=== PATIENT | male | born 1950 | race Hispanic/Latino ===

== ENCOUNTER 2020-04-15 11:46 | Inpatient (IN) | payer MEDICARE ==
[~2020-04-15] VITALS: Ht 180.3 cm; Wt 97.1 kg
[~2020-04-15 11:46] MED LIST: ASPIRIN EC81 MG PO; FISH OIL PO; GLIMEPIRIDE PO; LEVEMIR 3M100 UNITS/ SQ; LIPITOR40 MG PO; LISINOPRIL10 MG PO; PLAVIX75 MG PO
[2020-04-15] MEDS ORDERED: SODIUM CHLORIDE 0.9% 1000ML 1,000 ML IV STA (11:54)
[2020-04-15] MEDS ORDERED: ONDANSETRON HCL INJ 2MG/ML 2ML 2 MG/ML VIAL IV STA (11:54)
[2020-04-15] MEDS ORDERED: MORPHINE SULFATE INJ 4 MG/ML INJ 1ML IV PRN (12:00)
--- NOTE | 2020-04-15 12:14 | Emergency Department Note ---
History of Present Illnes History of Present Illness Chief Complaint: Abdominal Complaints History of Present Illness This is a 69 year old male arrives to the ED with right upper quadrant abdominal pain. Patient seen in Dr. Feng's office instructed to come to the ER to rule out acute cholecystitis. Patient states she's had pain for 3 or 4 days. 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 Any updates have been documented here. Past Medical History Recent Fever: No Clinical Suspicion of Infectio: Yes New/Unexplained Change in Ment: No Social History Smoking Cessation: Former smoker Alcohol Use: Social Review of Systems Review of Systems Constitutional: Reports no symptoms EENTM: Reports no symptoms Cardiovascular: Reports no symptoms Respiratory: Reports no symptoms Gastrointestinal: Reports as per HPI, Reports abdominal pain Genitourinary: Reports no symptoms Musculoskeletal: Reports no symptoms Integumentary: Reports no symptoms Neurological: Reports no symptoms Psychological: Reports no symptoms Endocrine: Reports no symptoms Hematological/Lymphatic: Reports no symptoms Physical Exam Related Data Allergies: Coded Allergies: No Known Allergies (Unverified , 05/11/14) Triage Vital Signs Vital Signs Date Time Temp Pulse Resp B/P (MAP) Pulse Ox O2 Delivery O2 Flow Rate FiO2 04/15/20 11:54 98.8 103 24 116/74 100 Room Air Vital signs reviewed: Yes Physical Exam CONSTITUTIONAL Constitutional: Present well-developed, Present well-nourished HENT HENT: Present normocephalic, Present atraumatic, Present oropharynx clear/mo ist, Present nose normal HENT L/R: Present left ext ear normal, Present right ext ear normal EYES Eyes: Reports PERRL, Reports scleral icterus NECK Neck: Present ROM normal PULMONARY Pulmonary: Present effort normal, Present respiratory distress CARDIOVASCULAR Cardiovascular: Present regular rhythm, Present heart sounds normal, Present capillary refill normal, Present normal rate, Present tachycardia GASTROINTESTINAL Abdominal: Present soft, Present bowel sounds normal, Present distension, Present tender GENITOURINARY Genitourinary: Present exam deferred SKIN Skin: Present warm, Present dry MUSCULOSKELETAL Musculoskeletal: Present ROM normal NEUROLOGICAL Neurological: Present alert, Present oriented x 3, Present no gross motor or sensory deficits PSYCHOLOGICAL Psychological: Present mood/affect normal, Present judgement normal Procedures 12 Lead ECG Interpretation ECG Interpretation : ECG: ECG 1 Prior ECG tracings: reviewed Rhythm: sinus rhythm Ectopy: PVC's QRS axis: left ST segments normal: Yes T waves normal: Yes Clinical Impression: non-specific ECG Critical Care Time Total Critical Care Time (min): 65 Critical care time exclusive o: separately billable procedures Critcal care necessary due to: sepsis Assessment & Plan Medical Decision Making MDM 69-year-old male the ED with abdominal pain, sent from his office to the ED for further workup of acute cholecystitis. Patient's lab work reviewed, no leukocytosis noted, however, mild elevation of T bili noted. CT abdomen and pelvis shows unremarkable gallbladder pathology. Findings of abdominal ascites were noted and explained. Spoke to Dr. Ernst hoang of Gen. surgery, as well as patient's primary care physician Dr. Carmelita Feng. Patient admitted for further workup and management. Malignancy, liver cirrhosis, hep C and other various intra-abdominal pathologies are on the differential diagnosis. Patient had SIRS criteria on arrival and severe sepsis was triggered at 1341 Blood cultures drawn, broad spectrum antibiotics in the form of Zosyn given at 1234 completion of transfusion done at 1333 Repeat lactic acid improved Source of infection noted to be intraabdominal Patient admitted Assessment & Plan Final Impression: (1) Hyperbilirubinemia (2) Liver dysfunction (3) Severe sepsis (4) Ascites Depart Disposition: ADMITTED Last Vital Signs Date Time Temp Pulse Resp B/P (MAP) Pulse Ox O2 Delivery O2 Flow Rate FiO2 04/15/20 11:54 98.8 103 24 116/74 100 Room Air Home Meds Reported Medications [Fish Oil] No Conflict Check, 1000 MG PO DAILY 05/11/14 Aspirin (ASPIRIN EC) 81 Mg Tablet., 81 MG PO DAILY, #30 TAB 05/11/14 Insulin Detemir* (LEVEMIR 3ML FLEXPEN*) 100 Units/Ml Inj, 30 UNITS SQ BID 05/11/14 Clopidogrel Bisulfate* (PLAVIX) 75 Mg Tablet, 75 MG PO DAILY, #30 TAB 05/11/14 [Glimepiride] No Conflict Check, 4 MG PO DAILY 05/11/14 Lisinopril (LISINOPRIL) 10 Mg Tablet, 10 MG PO DAILY, #30 TAB 05/11/14 Atorvastatin Calcium (LIPITOR) 40 Mg Tablet, 40 MG PO DAILY 05/11/14 Medications in the ED Sodium Chloride 1,000 ml @ 0 mls/hr Q0M STAT IV ; Start 04/15/20 at 11:54; Stop 04/15/20 at 11:56; Status DC Morphine Sulfate 4 mg ONCE PRN IV SEVERE PAIN (7-10); Start 04/15/20 at 12:00; Stop 04/22/20 at 11:59 Ondansetron HCl 4 mg NOW STAT IV ; Start 04/15/20 at 11:54; Stop 04/15/20 at 12:00; Status DC GAMAL JC, Apr 15, 2020 12:15
[2020-04-15 12:23] LABS: BASOPHILS # (AUTO) 0.1 (0.0-0.1); BASOPHILS % 1.3 % (0.0-1.0); EOSINOPHILS # (AUTO) 0.2 (0.0-0.4); EOSINOPHILS % 2.8 % (0.0-6.0); HEMOGLOBIN 11.4 g/dL (14.0-18.0); LYMPHOCYTES # (AUTO) 0.6 (1.0-3.2); LYMPHOCYTES % 7.4 % (18.0-39.1); MEAN CORPUSCULAR HEMOGLOBIN 26.8 pg (28-32); MEAN CORPUSCULAR HGB CONC 30.8 g/dL (31-35); MEAN CORPUSCULAR VOLUME 87.1 fL (81-99); MONOCYTES # (AUTO) 0.6 (0.2-0.8); MONOCYTES % 8.5 % (4.4-11.3); NEUTROPHILS # (AUTO) 5.9 (2.1-6.9); NEUTROPHILS % 79.7 % (38.7-80.0); PLATELET COUNT 290 x10e3/uL (140-360); RED BLOOD COUNT 4.25 x10e6/uL (4.3-5.7); RED CELL DISTRIBUTION WIDTH 16.8 % (11.7-14.4)
[2020-04-15] MEDS ORDERED: PIPER-TAZ 3.375 GM 50 ML IV STA (12:34)
[2020-04-15 12:41] LABS: ALBUMIN/GLOBULIN RATIO 0.7 (0.8-2.0); ANION GAP 17.2 mmol/L (8-16); CALCIUM 8.9 mg/dL (8.4-10.2); CREATININE, SERUM 1.72 mg/dL (0.72-1.25); POTASSIUM 4.2 mmol/L (3.5-5.1)
[2020-04-15 12:48] LABS: CREATINE KINASE MB 1.7 ng/mL (0-5.0)
[2020-04-15 13:14] LABS: CLARITY,URINE CLEAR (CLEAR); COLOR,URINE YELLOW (YELLOW)
[2020-04-15 13:15] LABS: BILIRUBIN,URINE NEGATIVE (NEGATIVE); KETONES,URINE 1+ (NEGATIVE); LEUKOCYTE ESTERASE ,URINE NEGATIVE (NEGATIVE); NITRITE,URINE NEGATIVE (NEGATIVE); PROTEIN,URINE DIPSTICK NEGATIVE (NEGATIVE); URINE UROBILINOGEN 0.2 mg/dL (0.2 - 1)
[2020-04-15 13:29] LABS: BACTERIA,URINE FEW /HPF; EPITHELIAL CELLS,URINE RARE /LPF; RBC,URINE 0-5 /HPF (0-5); WBC,URINE (MAN) 0-5 /HPF (0-5)
[2020-04-15] MEDS ORDERED: SODIUM CHLORIDE 0.9% 50ML 50 ML ONE (14:32)
[2020-04-15] MEDS ORDERED: IOPAMIDOL 370 MG/ML 200 ML INFUS..BTL INJ ONE (14:33)
--- NOTE | 2020-04-15 14:33 | Diagnostic Imaging Report ---
CT of the abdomen and pelvis, with contrast. History: Right upper quadrant abdominal pain. Comparison: None available. Technique: Multidetector CT scanning of the abdomen and pelvis was performed from the level of the lung bases to the inferior pubic rami after intravenous administration of contrast. Coronal and sagittal multiplanar reformations were obtained. RADIATION DOSE: Total DLP: 751.24 mGy*cm Dose modulation, iterative reconstruction, and/or weight based adjustment of the mA/kV was utilized to reduce the radiation dose to as low as reasonably achievable. FINDINGS: Areas of scattered subsegmental atelectasis noted within the visualized lung bases. Atherosclerotic calcifications noted within the visualized coronary arteries. There is a moderate volume of simple-appearing abdominopelvic ascites present. The liver is normal in size and attenuation but demonstrates a subtle micronodular contour which can be seen in setting of hepatic dysfunction. No focal hepatic abnormality is identified on the single phase examination. There is reflux of contrast material into the hepatic veins which is nonspecific but can be seen in the setting of right-sided heart dysfunction. The gallbladder is not dilated. There is no evidence for radiopaque stone or wall thickening. There is no intra or extrahepatic biliary ductal dilatation. The stomach, spleen, pancreas, and bilateral adrenal glands are unremarkable. The kidneys are normal in size and location and enhance symmetrically. Vascular calcifications are noted on the left. There is no evidence for nephrolithiasis or hydronephrosis. No ureteral stone or dilatation is appreciated. The abdominal aorta is normal in course and caliber with extensive atherosclerotic calcifications. Significant atherosclerotic plaquing noted at the origins of the celiac axis, SMA, left renal artery, and SAUMYA. The IVC is unremarkable. The portal venous system, SMV, and splenic vein appear patent. Please note evaluation of bowel is limited without the use of enteric contrast material. Mild wall thickening noted of a loop of small bowel within the left upper abdomen, likely reactive to adjacent ascites. The visualized loops of small and large bowel otherwise demonstrate no evidence of obstruction or inflammation. There is no intraperitoneal free air. No abnormally enlarged lymph nodes are identified within the abdomen or pelvis. Tiny fat-containing umbilical hernia and small bilateral fat-containing hernias noted. There are degenerative changes of the lower lumbar spine. Osseous structures otherwise demonstrate no evidence for acute fracture or destructive process. Body wall edema noted. IMPRESSION: 1. Moderate volume of abdominopelvic ascites. 2. Subtle micronodular contour noted of the liver which can be seen in the setting of hepatic dysfunction. Reflux of contrast material also noted within the hepatic veins which is nonspecific but can be seen in the setting of right-sided heart dysfunction. 3. Prominent calcific abdominal aortic atherosclerosis and coronary artery disease. Signed by: Dr. Andres Whyte MD on 04/15/2020 2:30 PM
--- OUTSIDE RECORDS SUMMARY | 2020-04-15 16:22 | XMS REPORT | Continuity of Care Document ---
Author Author [facility] t Organization [facility] Address [address] [place] [address] Phone Unavailable Care Team Providers Care X Ray Nurse Name Role Phone DAYANARATARACarmelita GAMAL Attphys Unavailable Payers Payer Name Policy Type Policy Number Effective Date Expiration Date S ource Problems Condition Name Condition Details Condition Category Status Onset Date Resolution Date Last Treatment Date Treating Clinician Comments Source Carotid artery disease Palafox tid artery disease Active Problem 04/07/2016 Mohamed O Jeroudi Problem Active 20 03-04-20 02:48:23 Ramone Shirley Hypercholesterolemia Hype rcholesterolemia Active Problem 04/07/2016 Mohamed O Jeroudi Problem Active 2016-04-07 02:48:23 Ramone Shirley Diabetes mellitus Diab etes mellitus Active Problem 04/07/2016 Mohamed O Jeroudi Problem Active 2016-04-07 02:48:23 Ramone Shirley Equivalent angina Equi valent angina Active Problem 04/07/2016 Mohamed O Jeroudi Problem Active 2016-04-07 02:48:23 Ramone Shirley CAD, Graft CAD, Graft Active Problem 04/07/2016 Mohamed O Jeroudi Problem Active 2016-04-07 02:48:23 Ramone Shirley Smoker Smok er Active Diagnosis 04/07/2016 Mohamed O Jeroudi Diagnosis Active 2016-04-07 02:48:23 Me dena Shirley DJD (degenerative joint disease) of knee DJD (degenerative joint disease) of knee Active Diagnosis 04/07/2016 Mohamed O Daveoudi Diagnosis Active 2016-04-07 02:48:23 Me dena Shirley Subclavian artery stenosis, left Subclavian artery stenosis, left Active Problem 04/07/2016 Lilliana Delaney Problem Active 2016-04-07 02:48:23 [facility] CVA CVA Active Problem 04/07/2016 Lilliana Delaney Problem Active 2016-04-07 02:48:23 [facility] Atherosclerosis of saxman arteries of th e extremities with intermittent claudication Atherosclerosis of saxman arteries of the extremities with intermittent claudication Active Problem 04/07/2016 Lilliana Delaney Problem Active 2016-04-07 02:48:23 Raman Shirley Abnormal EKG Abno rmal EKG Active Problem 04/07/2016 Lilliana Delaney Problem Active 2016-04-07 02:48:23 [facility] Benign hypertensive heart disease Benign hypertensive heart disease Active Problem 04/07/2016 Lilliana Delaney Problem Active 2016-04-07 02:48:23 [facility] jail 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 use of 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 Active Diagnosis 02/23/2020 Lilliana Delaney Diagnosis Active 2020-02-23 02:45:23 [facility] Patient unable to exercise Pat ient unable to exercise Active Diagnosis 02/23/2020 Lilliana Delaney Diagnosis Active 2020-02-23 02:45:23 [facility] Subclavian arterial stenosis S ubclavian arterial stenosis Active Diagnosis 02/23/2020 Lilliana Delaney Diagnosis Active 2020-02-23 02:45:23 [facility] Type 2 diabetes mellitus with unspecified complication s Type 2 diabetes mellitus with unspecified complications Active Diagnosis 02/23/2020 Lilliana Delaney Diagnosis Active 2020-02-23 02:45:2 3 [facility] History of CEA (carotid endarterectomy) History of CEA (carotid endarterectomy) Active Diagnosis 02/23/2020 Lilliana Delaney Diagnosis Active 2020-02-23 02:45:23 Gerardo Shirley Osteoarthritis of knee, unspecified Osteoarthritis of knee, unspecified Active Diagnosis 02/23/2020 Lilliana Delaney Diagnosis Active 2020-02-23 02:45:23 [facility] Nicotine dependence, unspecified, uncomplicated Nicotine dependence, unspecified, uncomplicated Active Diagnosis 02/23/2020 Lilliana Delaney Diagnosis Active 2020-02-23 02:45:23 [facility] Pure hypercholesterolemia, unspecified Pure hypercholesterolemia, unspecified Active Diagnosis 02/23/2020 Lilliana Delaney Diagnosis Active 2020-02-23 02:45:23 [facility] Hypertensive heart disease without heart failure Hypertensive heart disease without heart failure Active Diagnosis 02/23/2020 Lilliana Delaney Diagnosis Active 2020-02-23 02:45:23 [facility] 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 Active Problem 02/23/2020 Lilliana Delaney Problem Active 2020-02-23 02:45:23 [facility] Abnormal electrocardiogram [ECG] [EKG] Abnormal electrocardiogram [ECG] [EKG] Active Diagnosis 02/23/2020 Lilliana eDlaney Diagnosis Active 2020-02-23 02:45:23 [facility] 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 Active Diagnosis 02/23/2020 Lilliana Delaney Diagnosis Active 2020-02-23 02:45:2 3 [facility] Acute mitral insufficiency Acu te mitral insufficiency Active Problem 02/23/2020 Lilliana Delaney Problem Active 2020-02-23 02:45:23 [facility] History of AR (myocardial infarction) History of AR (myocardial infarction) Active Problem 02/23/2020 Lilliana Delaney Problem Active 2020-02-23 02:45:23 [facility] Mitral valve disorders Mitr al valve disorders Active Problem 02/23/2020 Lilliana Delaney Problem Active 07-03-07 02:45:23 [facility] Atherosclerosis of saxman artery of both lower extremities with intermittent claudication Atherosclerosis of saxman artery of both lower extremities with intermittent claudication Active Diagnosis 02/23/2020 Lilliana Delaney Diagnosis Active 2020-02-23 02:45:23 [facility] AGRAWAL (dyspnea on exertion) AGRAWAL (dyspnea on exertion) Active Problem 02/23/2020 Lilliana Delaney Problem Active 2020-02-23 02:45:23 [facility] Chronic systolic congestive heart failure Chronic systolic congestive heart failure Active Problem 02/23/2020 Lilliana Delaney Problem Active 2020-02-23 02:45:23 [facility] Abnormal cardiovascular stress test Abnormal cardiovascular stress test Active Problem 02/23/2020 Mohamed O Jeroudi Problem Active 2020-02-23 02:45:23 Gerardo Shirley Other forms of angina pectoris Other forms of angina pectoris Active Problem 02/23/2020 Lilliana Blackwell Jeroudi Problem Active 2020-02-23 02:45:23 [facility] Allergies, Adverse Reactions, Alerts Allergy Name Allergy Type Status Severity Reaction(s) Onset Date Inacti ve Date Treating Clinician Comments Source No Known Allergies DA Active U 2020-02-16 00:00:00 [facility] N.KNika Kirk Active Info Not Available 2018-11-24 00:00:00 [facility] No Known Allergies DA Active U 2015-01-14 00:00:00 [facility] Family History Family Member Diagnosis Comments Start Date Stop Date Source Unknown Family Member Family History 2016-04-07 02:48:12 2 02:48:12 [facility] Social History Social Habit Start Date Stop Date Quantity Comments Source Smoking 2015-04-12 00:00:00 2015-04-12 00:00:00 [facility] Medications Ordered Medication Name Filled Medication Name Start Date Stop Da te Current Medication? Ordering Clinician Indication Dosage Frequency Signature (SIG) Comments Components Source Clopidogrel Bisulfate 2020-02-23 02:45:23 Yes Ahmad Jeroudi 1 tablet [facility] Aspirin EC 2020-02-23 02:45:23 Yes Ahmad Jeroudi 1 tablet [facility] Glimepiride 2020-02-23 02:45:23 Yes Ahmad Jeroudi 1 tablet with breakfast or the first main meal of the day [facility] Metoprolol Tartrate 2020-02-23 02:45:23 Yes Ahmad Jeroud i 1/2 half tablet [facility] Levemir 2020-02-23 02:45:23 Yes Ahmad Jeroudi as directed [facility] Atorvastatin Calcium 2020-02-23 02:45:23 Yes Ahmad Jeroudi 1 tablet [facility] Lisinopril 2020-02-23 02:45:23 Yes Ahmad Jeroudi 1 tablet [facility] Aspir-81 2020-02-23 02:45:23 Yes Ahmad Jeroudi 1 tablet [facility] Lasix 2020-01-28 00:00:00 Yes Ahmad Jeroudi 1 tab let [facility] Levemir 2016-04-07 02:48:23 Yes Lilliana Acostamamadoudi a s directed [facility] [place] Glimepiride 2016-04-07 02:48:23 Yes Lilliana Acostaoudi 1 tablet with breakfast or the first main meal of the day [facility] [place] Metoprolol Tartrate 2016-04-07 02:48:23 Yes Lilliana Elizondo estefany 1/2 half tablet [facility] Clopidogrel Bisulfate 2016-04-07 02:48:23 Yes Lilliana Sanchez roudi 1 tablet [facility] Aspirin EC 2016-04-07 02:48:23 Yes Lilliana Acostaoudi 1 tablet [facility] Atorvastatin Calcium 2016-04-07 02:48:23 Yes Lilliana Acostaoudi 1 tablet [facility] [place] Lisinopril 2016-04-07 02:48:23 Yes Lilliana Acostaoudi 1 tablet [facility] Vital Signs Vital Name Observation Time Observation Value Comments Source Weight 2020-01-28 18:00:00 [facility] [place] Height 2020-01-28 18:00:00 [facility] [place] Temperature Oral (F) 2020-01-28 18:00:00 97.0 F [facility] [place] Heart Rate 2020-01-28 18:00:00 [facility] [place] Diastolic (mm Hg) 2020-01-28 18:00:00 [facility] [place] Systolic (mm Hg) 2020-01-28 18:00:00 Raman Bowenann Weight 2019-02-09 16:00:00 [facility] [place] Height 2019-02-09 16:00:00 [facility] [place] Temperature Oral (F) 2019-02-09 16:00:00 97.0 F [facility] [place] Heart Rate 2019-02-09 16:00:00 [facility] [place] Diastolic (mm Hg) 2019-02-09 16:00:00 [facility] [place] Systolic (mm Hg) 2019-02-09 16:00:00 Raman bubbal [place] Weight 2019-01-08 18:00:00 [facility] [place] Height 2019-01-08 18:00:00 [facility] [place] Temperature Oral (F) 2019-01-08 18:00:00 96.7 F [facility] [place] Heart Rate 2019-01-08 18:00:00 [facility] [place] Diastolic (mm Hg) 2019-01-08 18:00:00 [facility] [place] Systolic (mm Hg) 2019-01-08 18:00:00 [facility] [place] Weight 2018-12-10 19:00:00 [facility] [place] Height 2018-12-10 19:00:00 [facility] [place] Temperature Oral (F) 2018-12-10 19:00:00 96.2 F [facility] [place] Heart Rate 2018-12-10 19:00:00 [facility] [place] Diastolic (mm Hg) 2018-12-10 19:00:00 [facility] [place] Systolic (mm Hg) 2018-12-10 19:00:00 Raman [facility] [place] Weight 2018-11-24 20:30:00 [facility] [place] Height 2018-11-24 20:30:00 [facility] [place] Temperature Oral (F) 2018-11-24 20:30:00 96.1 F [facility] [place] Heart Rate 2018-11-24 20:30:00 [facility] [place] Diastolic (mm Hg) 2018-11-24 20:30:00 [facility] [place] Systolic (mm Hg) 2018-11-24 20:30:00 Raman rial [place] Weight 2015-04-11 20:00:00 [facility] [place] Height 2015-04-11 20:00:00 [facility] [place] Temperature Oral (F) 2015-04-11 20:00:00 97.9 F [facility] [place] Heart Rate 2015-04-11 20:00:00 [facility] [place] Diastolic (mm Hg) 2015-04-11 20:00:00 [facility] [place] Systolic (mm Hg) 2015-04-11 20:00:00 Raman [facility] [place] Weight 2015-03-23 19:00:00 [facility] [place] Height 2015-03-23 19:00:00 [facility] [place] Temperature Oral (F) 2015-03-23 19:00:00 97.2 F [facility] [place] Heart Rate 2015-03-23 19:00:00 [facility] [place] Diastolic (mm Hg) 2015-03-23 19:00:00 [facility] [place] Systolic (mm Hg) 2015-03-23 19:00:00 Raman [facility] [place] Weight 2015-02-01 19:30:00 [facility] [place] Height 2015-02-01 19:30:00 [facility] [place] Temperature Oral (F) 2015-02-01 19:30:00 96.7 F [facility] [place] Heart Rate 2015-02-01 19:30:00 [facility] [place] Diastolic (mm Hg) 2015-02-01 19:30:00 [facility] [place] Systolic (mm Hg) 2015-02-01 19:30:00 Raman rial [place] Procedures This patient has no known procedures. Encounters Start Date/Time End Date/Time Encounter Type Admission Type [facility] Care Department Encounter ID Source 2020-01-28 13:00:00 2020-01-28 13:00:00 Outpatient Lilliana Delaney MD [place] [id number] [employer] 2019-02-09 11:00:00 2019-02-09 11:00:00 Outpatient Lilliana Delaney MD [place] [id number] [employer] 2019-01-08 13:00:00 2019-01-08 13:00:00 Outpatient Lilliana Delaney MD [place] [id number] [employer] 2018-12-10 14:00:00 2018-12-10 14:00:00 Outpatient Lilliana Delaney MD PA [id number] [employer] 2018-11-24 15:30:00 2018-11-24 15:30:00 Outpatient Lilliana Delaney MD [place] [id number] [employer] 2015-04-11 15:00:00 2015-04-11 15:00:00 [place] [id number] [employer] 2015-03-23 14:00:00 2015-03-23 14:00:00 [place] [id number] [employer] 2015-02-01 14:30:00 2015-02-01 14:30:00 [place] [id number] [employer] Results Test Description Test Time Test Comments Results Result Comments Source CT ABDOMEN/PELVIS W 2020-04-15 14:13:00 [place] [address] Patient Name: OBDULIA GARCIA MR #: [id number] : 1950 [facility] 69[id number] #: [id number] [facility] Physician: Ordered by: GAMAL JC DO Report #: [id number] Location: ER Room/Bed: Procedure: [id number] CT/CT ABDOMEN/PELVIS W Exam Date: 04/15/20 Exam Time: 1330 REPORT STATUS: Signed CT of the abdomen and pelvis, with contrast. History: Right upper quadrant abdominal pain. Comparison: None available. Technique: Multidetector CT scanning of the abdomen and pelvis was performed from the level of the lung bases to the inferior pubic rami after intravenous administration of contrast. Coronal and sagittal multiplanar reformations were obtained. RADIATION DOSE: Total DLP: 751.24 mGy*cm Dose modulation, iterative reconstruction, and/or weight based adjustment of the mA/kV was utilized to reduce the radiation dose to as low as reasonably achievable. FINDINGS: Areas of scattered subsegmental atelectasis noted within the visualized lung bases. Atherosclerotic calcifications noted within the visualized coronary arteries. There is a moderate volume of simple-appearing abdominopelvic ascites present. The liver is normal in size and attenuation but demonstrates a subtle micronodular contour which can be seen in setting of hepatic dysfunction. No focal hepatic abnormality is identified on the single phase examination. There is reflux of contrast material into the hepatic veins which is nonspecific but can be seen in the setting of right-sided heart dysfunction. The gallbladder is not dilated. There is no evidence for radiopaque stone or wall thickening. There is no intra or extrahepatic biliary ductal dilatation. The stomach, spleen, pancreas, and bilateral adrenal glands are unremarkable. The kidneys are normal in size and location and enhance symmetrically. Vascular calcifications are noted on the left. There is no evidence for nephrolithiasis or hydronephrosis. No ureteral stone or dilatation is appreciated. The abdominal aorta is normal in course and caliber with extensive atherosclerotic calcifications. Significant atherosclerotic plaquing noted at the origins of the celiac axis, SMA, left renal artery, and SAUMYA. The IVC is unremarkable. The portal venous system, SMV, and splenic vein appear patent. Please note evaluation of bowel is limited without the use of enteric contrast material. Mild wall thickening noted of a loop of small bowel within the left upper abdomen, likely reactive to adjacent ascites. The visualized loops of small and large bowel otherwise demonstrate no evidence of obstruction or inflammation. There is no intraperitoneal free air. No abnormally enlarged lymph nodes are identified within the abdomen or pelvis. Tiny fat-containing umbilical hernia and small bilateral fat-containing hernias noted. There are degenerative changes of the lower lumbar spine. Osseous structures otherwise demonstrate no evidence for acute fracture or destructive process. Body wall edema noted. IMPRESSION: 1. Moderate volume of abdominopelvic ascites. 2. Subtle micronodular contour noted of the liver which can be seen in the setting of hepatic dysfunction. Reflux of contrast material also noted within the hepatic veins which is nonspecific but can be seen in the setting of right-sided heart dysfunction. 3. Prominent calcific abdominal aortic atherosclerosis and coronary artery disease. Signed by: Dr. Andres Whyte MD on 04/15/2020 2:30 PM Dictated By: ANDRES WHYTE MD 1430 Transcribed By: YUMIKO on 04/15/20 1430 COPY TO: GAMAL JC DO BASIC METABOLIC PANEL 2020-02-22 08:17:00 Test Item SODIUM (test code = NA) 138 mmol/L 136-145 N POTASSIUM (test code = K) 3.8 mmol/L 3.5-5.1 N CHLORIDE (test code = CL) 92.0 mmol/L 98-107 L CARBON DIOXIDE (test code = CO2) 39.0 mmol/L 21-32 H ANION GAP (test code = GAP) 10.8 10-20 N GLUCOSE (test code = GLU) 63 mg/dL 74-106 L BLOOD UREA NITROGEN (test code = BUN) 29 mg/dL 7-18 H GLOMERULAR FILTRATION RATE (test code = GFR) 46 mL/min >=60 Estimated GFR by using Modified MDRD formula.Chronic kidney disease is defined as either kidney damageor GFR <60 mL/min/1.73 m2 for >3 months. CREATININE (test code = CREAT) 1.50 mg/dL 0.7-1.3 H BUN/CREATININE RATIO (test code = BUN/CREA) 19.2 10-20 N CALCIUM (test code = CA) 9.7 mg/dL 8.5-10.1 N BASIC METABOLIC [id number] 08:09:00* Test Item Value Reference Range Interpretation Comments SODIUM (test code = NA) 138 mmol/L 136-145 N POTASSIUM (test code = K) 3.8 mmol/L 3.5-5.1 N CHLORIDE (test code = CL) 92.0 mmol/L 98-107 L CARBON DIOXIDE (test code = CO2) mmol/L 21-32 ANION GAP (test code = GAP) 10.8 10-20 N GLUCOSE (test code = GLU) mg/dL 74-106 BLOOD UREA NITROGEN (test code = BUN) mg/dL 7-18 GLOMERULAR FILTRATION RATE (test code = GFR) mL/min >=60 CREATININE (test code = CREAT) mg/dL 0.7-1.3 BUN/CREATININE RATIO (test code = BUN/CREA) 10-20 CALCIUM (test code = CA) 9.7 mg/dL 8.5-10.1 N [id number] 07:58:00* Test Item Value Reference Range Interpretation Comments GLUBED (test code = GLUBED) 121 mg/dL 74-106 H Performed by certified fruit loader machine operator at [facility] [id number] 06:31:00* Test Item Value Reference Range Interpretation Comments GLUBED (test code = GLUBED) 65 mg/dL 74-106 L Performed by certified fruit loader machine operator at [facility] COMPREHENSIVE METABOLIC [id number] 05:10:00* Test Item Value Reference Range Interpretation Comments SODIUM (test code = NA) 137 mmol/L 136-145 N POTASSIUM (test code = K) 3.6 mmol/L 3.5-5.1 N CHLORIDE (test code = CL) 92.0 mmol/L 98-107 L CARBON DIOXIDE (test code = CO2) 39.0 mmol/L 21-32 H ANION GAP (test code = GAP) 9.6 10-20 L GLUCOSE (test code = GLU) 63 mg/dL 74-106 L BLOOD UREA NITROGEN (test code = BUN) 29 mg/dL 7-18 H GLOMERULAR FILTRATION RATE (test code = GFR) 46 mL/min >=60 Estimated GFR by using Modified MDRD formula.Chronic kidney disease is defined as either kidney damageor GFR <60 mL/min/1.73 m2 for >3 months. CREATININE (test code = CREAT) 1.50 mg/dL 0.7-1.3 H BUN/CREATININE RATIO (test code = BUN/CREA) 19.6 10-20 N TOTAL PROTEIN (test code = PROT) 7.2 gram/dL 6.4-8.2 N ALBUMIN (test code = ALB) 3.0 g/dL 3.4-5.0 L GLOBULIN (test code = GLOB) 4.2 gram/dL 2.7-4.2 N ALBUMIN/GLOBULIN RATIO (test code = A/G) 0.7 0.75-1.50 L CALCIUM (test code = CA) 9.6 mg/dL 8.5-10.1 N BILIRUBIN TOTAL (test code = BILT) 1.10 mg/dL 0.0-1.0 H SGOT/AST (test code = AST) 23 IUnit/L 15-37 N SGPT/ALT (test code = ALT) 26 IUnit/L 12-78 N ALKALINE PHOSPHATASE TOTAL (test code = ALKP) 73 IUnit/L 45-117 N Note change in reference range due to change in reagent. COMPREHENSIVE METABOLIC [id number] 05:01:00* Test Item Value Reference Range Interpretation Comments SODIUM (test code = NA) 137 mmol/L 136-145 N POTASSIUM (test code = K) 3.6 mmol/L 3.5-5.1 N CHLORIDE (test code = CL) 92.0 mmol/L 98-107 L CARBON DIOXIDE (test code = CO2) mmol/L 21-32 ANION GAP (test code = GAP) 10-20 GLUCOSE (test code = GLU) mg/dL 74-106 BLOOD UREA NITROGEN (test code = BUN) mg/dL 7-18 GLOMERULAR FILTRATION RATE (test code = GFR) mL/min >=60 CREATININE (test code = CREAT) mg/dL 0.7-1.3 BUN/CREATININE RATIO (test code = BUN/CREA) 10-20 TOTAL PROTEIN (test code = PROT) gram/dL 6.4-8.2 ALBUMIN (test code = ALB) g/dL 3.4-5.0 GLOBULIN (test code = GLOB) gram/dL 2.7-4.2 ALBUMIN/GLOBULIN RATIO (test code = A/G) 0.75-1.50 CALCIUM (test code = CA) mg/dL 8.5-10.1 BILIRUBIN TOTAL (test code = BILT) mg/dL 0.0-1.0 SGOT/AST (test code = AST) IUnit/L 15-37 SGPT/ALT (test code = ALT) IUnit/L 12-78 ALKALINE PHOSPHATASE TOTAL (test code = ALKP) IUnit/L 45-117 CBC W/AUTO [id number] 04:40:00* Test Item Value Reference Range Interpretation Comments WHITE BLOOD CELL (test code = WBC) 7.2 K/mm3 4.5-12.5 N RED BLOOD CELL (test code = RBC) 4.80 mill/mm3 4.0-5.8 N HEMOGLOBIN (test code = HGB) 12.8 gram/dL 13.0-17.5 L HEMATOCRIT (test code = HCT) 39.7 % 42.0-52.0 L MEAN CELL VOLUME (test code = MCV) 82.7 fL 80-98 N MEAN CELL HGB (test code = MCH) 26.7 picogram 27.0-33.0 L MEAN CELL HGB CONCETRATION (test code = MCHC) 32.2 gram/dL 33.0-36. 0 L RED CELL DISTRIBUTION WIDTH (test code = RDW) 15.7 % 11.6-16. 2 N RED CELL DISTRIBUTION WIDTH SD (test code = RDW-SD) 47.4 fL 37 .0-51.0 N PLATELET COUNT (test code = PLT) 284 K/mm3 150-450 N MEAN PLATELET VOLUME (test code = MPV) 10.7 fL 6.7-11.0 N NEUTROPHIL % (test code = NT%) 64.6 % 39.0-69.0 N IMMATURE GRANULOCYTE % (test code = IG%) 0.1 % 0.0-5.0 N LYMPHOCYTE % (test code = LY%) 14.6 % 25.0-55.0 L MONOCYTE % (test code = MO%) 11.3 % 0.0-10.0 H EOSINOPHIL % (test code = EO%) 7.9 % 0.0-5.0 H BASOPHIL % (test code = BA%) 1.5 % 0.0-1.0 H NUCLEATED RBC % (test code = NRBC%) 0.0 % 0-0 N NEUTROPHIL # (test code = NT#) 4.65 K/mm3 1.8-7.7 N IMMATURE GRANULOCYTE # (test code = IG#) 0.01 x10 3/uL 0-0.03 N LYMPHOCYTE # (test code = LY#) 1.05 K/mm3 1.0-5.0 N MONOCYTE # (test code = MO#) 0.81 K/mm3 0-0.8 H EOSINOPHIL # (test code = EO#) 0.57 K/mm3 0.0-0.5 H BASOPHIL # (test code = BA#) 0.11 K/mm3 0.0-0.2 N NUCLEATED RBC # (test code = NRBC#) 0.00 K/mm3 0.0-0.1 N [id number] 20:15:00* Test Item Value Reference Range Interpretation Comments GLUBED (test code = GLUBED) 159 mg/dL 74-106 H Performed by certified fruit loader machine operator at [facility] [id number] 17:32:00* Test Item Value Reference Range Interpretation Comments GLUBED (test code = GLUBED) 120 mg/dL 74-106 H Performed by certified fruit loader machine operator at [facility] [id number] 12:43:00* Test Item Value Reference Range Interpretation Comments GLUBED (test code = GLUBED) 171 mg/dL 74-106 H Performed by certified fruit loader machine operator at [facility] [id number] 08:29:00* Test Item Value Reference Range Interpretation Comments GLUBED (test code = GLUBED) 85 mg/dL 74-106 N Performed by certified fruit loader machine operator at [facility] COMPREHENSIVE METABOLIC [id number] 05:57:00* Test Item Value Reference Range Interpretation Comments SODIUM (test code = NA) 137 mmol/L 136-145 N POTASSIUM (test code = K) 4.0 mmol/L 3.5-5.1 N CHLORIDE (test code = CL) 89.0 mmol/L 98-107 L CARBON DIOXIDE (test code = CO2) 42.0 mmol/L 21-32 H ANION GAP (test code = GAP) 10.0 10-20 N GLUCOSE (test code = GLU) 76 mg/dL 74-106 N BLOOD UREA NITROGEN (test code = BUN) 27 mg/dL 7-18 H RESULT VERIFIED BY REPEAT ANALYSIS GLOMERULAR FILTRATION RATE (test code = GFR) 40 mL/min >=60 Estimated GFR by using Modified MDRD formula.Chronic kidney disease is defined as either kidney damageor GFR <60 mL/min/1.73 m2 for >3 months. CREATININE (test code = CREAT) 1.70 mg/dL 0.7-1.3 H BUN/CREATININE RATIO (test code = BUN/CREA) 15.9 10-20 N TOTAL PROTEIN (test code = PROT) 8.1 gram/dL 6.4-8.2 N ALBUMIN (test code = ALB) 3.3 g/dL 3.4-5.0 L GLOBULIN (test code = GLOB) 4.8 gram/dL 2.7-4.2 H ALBUMIN/GLOBULIN RATIO (test code = A/G) 0.7 0.75-1.50 L CALCIUM (test code = CA) 10.2 mg/dL 8.5-10.1 H BILIRUBIN TOTAL (test code = BILT) 1.20 mg/dL 0.0-1.0 H SGOT/AST (test code = AST) 22 IUnit/L 15-37 N SGPT/ALT (test code = ALT) 29 IUnit/L 12-78 N ALKALINE PHOSPHATASE TOTAL (test code = ALKP) 83 IUnit/L 45-117 N Note change in reference range due to change in reagent. COMPREHENSIVE METABOLIC [id number] 04:43:00* Test Item Value Reference Range Interpretation Comments SODIUM (test code = NA) 137 mmol/L 136-145 N POTASSIUM (test code = K) 4.0 mmol/L 3.5-5.1 N CHLORIDE (test code = CL) 89.0 mmol/L 98-107 L CARBON DIOXIDE (test code = CO2) mmol/L 21-32 ANION GAP (test code = GAP) 10-20 GLUCOSE (test code = GLU) mg/dL 74-106 BLOOD UREA NITROGEN (test code = BUN) mg/dL 7-18 GLOMERULAR FILTRATION RATE (test code = GFR) mL/min >=60 CREATININE (test code = CREAT) mg/dL 0.7-1.3 BUN/CREATININE RATIO (test code = BUN/CREA) 10-20 TOTAL PROTEIN (test code = PROT) gram/dL 6.4-8.2 ALBUMIN (test code = ALB) g/dL 3.4-5.0 GLOBULIN (test code = GLOB) gram/dL 2.7-4.2 ALBUMIN/GLOBULIN RATIO (test code = A/G) 0.75-1.50 CALCIUM (test code = CA) mg/dL 8.5-10.1 BILIRUBIN TOTAL (test code = BILT) mg/dL 0.0-1.0 SGOT/AST (test code = AST) IUnit/L 15-37 SGPT/ALT (test code = ALT) IUnit/L 12-78 ALKALINE PHOSPHATASE TOTAL (test code = ALKP) IUnit/L 45-117 [id number] 19:59:00* Test Item Value Reference Range Interpretation Comments GLUBED (test code = GLUBED) 162 mg/dL 74-106 H Performed by certified fruit loader machine operator at [facility] [id number] 17:02:00* Test Item Value Reference Range Interpretation Comments GLUBED (test code = GLUBED) 168 mg/dL 74-106 H Performed by certified fruit loader machine operator at [facility] [id number] 12:11:00* Test Item Value Reference Range Interpretation Comments GLUBED (test code = GLUBED) 120 mg/dL 74-106 H Performed by certified fruit loader machine operator at [facility] [id number] 07:43:00* Test Item Value Reference Range Interpretation Comments GLUBED (test code = GLUBED) 85 mg/dL 74-106 N Performed by certified fruit loader machine operator at [facility] COMPREHENSIVE METABOLIC [id number] 05:25:00* Test Item Value Reference Range Interpretation Comments SODIUM (test code = NA) 138 mmol/L 136-145 N POTASSIUM (test code = K) 3.4 mmol/L 3.5-5.1 L CHLORIDE (test code = CL) 92.0 mmol/L 98-107 L CARBON DIOXIDE (test code = CO2) 38.0 mmol/L 21-32 H ANION GAP (test code = GAP) 11.4 10-20 N GLUCOSE (test code = GLU) 81 mg/dL 74-106 N BLOOD UREA NITROGEN (test code = BUN) 20 mg/dL 7-18 H GLOMERULAR FILTRATION RATE (test code = GFR) 60 mL/min >=60 Estimated GFR by using Modified MDRD formula.Chronic kidney disease is defined as either kidney damageor GFR <60 mL/min/1.73 m2 for >3 months. CREATININE (test code = CREAT) 1.20 mg/dL 0.7-1.3 N BUN/CREATININE RATIO (test code = BUN/CREA) 16.0 10-20 N TOTAL PROTEIN (test code = PROT) 6.8 gram/dL 6.4-8.2 N ALBUMIN (test code = ALB) 2.7 g/dL 3.4-5.0 L GLOBULIN (test code = GLOB) 4.1 gram/dL 2.7-4.2 N ALBUMIN/GLOBULIN RATIO (test code = A/G) 0.7 0.75-1.50 L CALCIUM (test code = CA) 9.7 mg/dL 8.5-10.1 N BILIRUBIN TOTAL (test code = BILT) 1.10 mg/dL 0.0-1.0 H SGOT/AST (test code = AST) 21 IUnit/L 15-37 N SGPT/ALT (test code = ALT) 23 IUnit/L 12-78 N ALKALINE PHOSPHATASE TOTAL (test code = ALKP) 70 IUnit/L 45-117 N Note change in reference range due to change in reagent. COMPREHENSIVE METABOLIC [id number] 05:09:00* Test Item Value Reference Range Interpretation Comments SODIUM (test code = NA) 138 mmol/L 136-145 N POTASSIUM (test code = K) 3.4 mmol/L 3.5-5.1 L CHLORIDE (test code = CL) 92.0 mmol/L 98-107 L CARBON DIOXIDE (test code = CO2) mmol/L 21-32 ANION GAP (test code = GAP) 10-20 GLUCOSE (test code = GLU) mg/dL 74-106 BLOOD UREA NITROGEN (test code = BUN) mg/dL 7-18 GLOMERULAR FILTRATION RATE (test code = GFR) mL/min >=60 CREATININE (test code = CREAT) mg/dL 0.7-1.3 BUN/CREATININE RATIO (test code = BUN/CREA) 10-20 TOTAL PROTEIN (test code = PROT) gram/dL 6.4-8.2 ALBUMIN (test code = ALB) g/dL 3.4-5.0 GLOBULIN (test code = GLOB) gram/dL 2.7-4.2 ALBUMIN/GLOBULIN RATIO (test code = A/G) 0.75-1.50 CALCIUM (test code = CA) mg/dL 8.5-10.1 BILIRUBIN TOTAL (test code = BILT) mg/dL 0.0-1.0 SGOT/AST (test code = AST) IUnit/L 15-37 SGPT/ALT (test code = ALT) IUnit/L 12-78 ALKALINE PHOSPHATASE TOTAL (test code = ALKP) IUnit/L 45-117 [id number] 19:59:00* Test Item Value Reference Range Interpretation Comments GLUBED (test code = GLUBED) 209 mg/dL 74-106 H Performed by certified fruit loader machine operator at [facility] [id number] 16:00:00* Test Item Value Reference Range Interpretation Comments GLUBED (test code = GLUBED) 150 mg/dL 74-106 H Performed by certified fruit loader machine operator at [facility] [id number] 11:53:00* Test Item Value Reference Range Interpretation Comments GLUBED (test code = GLUBED) 115 mg/dL 74-106 H Performed by certified fruit loader machine operator at [facility] [id number] 07:47:00* Test Item Value Reference Range Interpretation Comments GLUBED (test code = GLUBED) 77 mg/dL 74-106 N Performed by certified fruit loader machine operator at [facility] COMPREHENSIVE METABOLIC [id number] 07:05:00* Test Item Value Reference Range Interpretation Comments SODIUM (test code = NA) 138 mmol/L 136-145 N POTASSIUM (test code = K) 3.6 mmol/L 3.5-5.1 N CHLORIDE (test code = CL) 97.0 mmol/L 98-107 L CARBON DIOXIDE (test code = CO2) 34.0 mmol/L 21-32 H ANION GAP (test code = GAP) 10.6 10-20 N GLUCOSE (test code = GLU) 66 mg/dL 74-106 L BLOOD UREA NITROGEN (test code = BUN) 18 mg/dL 7-18 N GLOMERULAR FILTRATION RATE (test code = GFR) > 60 mL/min >=60 Estimated GFR by using Modified MDRD formula.Chronic kidney disease is defined as either kidney damageor GFR <60 mL/min/1.73 m2 for >3 months. CREATININE (test code = CREAT) 1.10 mg/dL 0.7-1.3 N BUN/CREATININE RATIO (test code = BUN/CREA) 16.1 10-20 N TOTAL PROTEIN (test code = PROT) 6.2 gram/dL 6.4-8.2 L ALBUMIN (test code = ALB) 2.6 g/dL 3.4-5.0 L GLOBULIN (test code = GLOB) 3.6 gram/dL 2.7-4.2 N ALBUMIN/GLOBULIN RATIO (test code = A/G) 0.7 0.75-1.50 L CALCIUM (test code = CA) 9.4 mg/dL 8.5-10.1 N BILIRUBIN TOTAL (test code = BILT) 1.10 mg/dL 0.0-1.0 H SGOT/AST (test code = AST) 16 IUnit/L 15-37 N SGPT/ALT (test code = ALT) 21 IUnit/L 12-78 N ALKALINE PHOSPHATASE TOTAL (test code = ALKP) 70 IUnit/L 45-117 N Note change in reference range due to change in reagent. COMPREHENSIVE METABOLIC [id number] 07:00:00* Test Item Value Reference Range Interpretation Comments SODIUM (test code = NA) 138 mmol/L 136-145 N POTASSIUM (test code = K) 3.6 mmol/L 3.5-5.1 N CHLORIDE (test code = CL) 97.0 mmol/L 98-107 L CARBON DIOXIDE (test code = CO2) mmol/L 21-32 ANION GAP (test code = GAP) 10-20 GLUCOSE (test code = GLU) mg/dL 74-106 BLOOD UREA NITROGEN (test code = BUN) mg/dL 7-18 GLOMERULAR FILTRATION RATE (test code = GFR) mL/min >=60 CREATININE (test code = CREAT) mg/dL 0.7-1.3 BUN/CREATININE RATIO (test code = BUN/CREA) 10-20 TOTAL PROTEIN (test code = PROT) gram/dL 6.4-8.2 ALBUMIN (test code = ALB) g/dL 3.4-5.0 GLOBULIN (test code = GLOB) gram/dL 2.7-4.2 ALBUMIN/GLOBULIN RATIO (test code = A/G) 0.75-1.50 CALCIUM (test code = CA) mg/dL 8.5-10.1 BILIRUBIN TOTAL (test code = BILT) mg/dL 0.0-1.0 SGOT/AST (test code = AST) IUnit/L 15-37 SGPT/ALT (test code = ALT) IUnit/L 12-78 ALKALINE PHOSPHATASE TOTAL (test code = ALKP) IUnit/L 45-117 [id number] 20:06:00* Test Item Value Reference Range Interpretation Comments GLUBED (test code = GLUBED) 175 mg/dL 74-106 H Performed by certified fruit loader machine operator at [facility] [id number] 15:22:00* Test Item Value Reference Range Interpretation Comments GLUBED (test code = GLUBED) 124 mg/dL 74-106 H Performed by certified fruit loader machine operator at [facility] [id number] 11:39:00* Test Item Value Reference Range Interpretation Comments GLUBED (test code = GLUBED) 129 mg/dL 74-106 H Performed by certified fruit loader machine operator at [facility] [id number] 07:40:00* Test Item Value Reference Range Interpretation Comments GLUBED (test code = GLUBED) 101 mg/dL 74-106 N Performed by certified fruit loader machine operator at [facility] COMPREHENSIVE METABOLIC [id number] 07:36:00* Test Item Value Reference Range Interpretation Comments SODIUM (test code = NA) 139 mmol/L 136-145 N POTASSIUM (test code = K) 3.9 mmol/L 3.5-5.1 N CHLORIDE (test code = CL) 100.0 mmol/L 98-107 N CARBON DIOXIDE (test code = CO2) 30.0 mmol/L 21-32 N ANION GAP (test code = GAP) 12.9 10-20 N GLUCOSE (test code = GLU) 92 mg/dL 74-106 N BLOOD UREA NITROGEN (test code = BUN) 19 mg/dL 7-18 H GLOMERULAR FILTRATION RATE (test code = GFR) 54 mL/min >=60 Estimated GFR by using Modified MDRD formula.Chronic kidney disease is defined as either kidney damageor GFR <60 mL/min/1.73 m2 for >3 months. CREATININE (test code = CREAT) 1.30 mg/dL 0.7-1.3 N BUN/CREATININE RATIO (test code = BUN/CREA) 15.0 10-20 N TOTAL PROTEIN (test code = PROT) 6.0 gram/dL 6.4-8.2 L ALBUMIN (test code = ALB) 2.6 g/dL 3.4-5.0 L GLOBULIN (test code = GLOB) 3.4 gram/dL 2.7-4.2 N ALBUMIN/GLOBULIN RATIO (test code = A/G) 0.8 0.75-1.50 N CALCIUM (test code = CA) 8.9 mg/dL 8.5-10.1 N BILIRUBIN TOTAL (test code = BILT) 1.20 mg/dL 0.0-1.0 H SGOT/AST (test code = AST) 16 IUnit/L 15-37 N SGPT/ALT (test code = ALT) 21 IUnit/L 12-78 N ALKALINE PHOSPHATASE TOTAL (test code = ALKP) 69 IUnit/L 45-117 N Note change in reference range due to change in reagent. BASIC METABOLIC [id number] 07:28:00* Test Item Value Reference Range Interpretation Comments SODIUM (test code = NA) 137 mmol/L 136-145 N POTASSIUM (test code = K) 3.8 mmol/L 3.5-5.1 N CHLORIDE (test code = CL) 101.0 mmol/L 98-107 N CARBON DIOXIDE (test code = CO2) 27.0 mmol/L 21-32 N ANION GAP (test code = GAP) 12.8 10-20 N GLUCOSE (test code = GLU) 93 mg/dL 74-106 N BLOOD UREA NITROGEN (test code = BUN) 20 mg/dL 7-18 H GLOMERULAR FILTRATION RATE (test code = GFR) 54 mL/min >=60 Estimated GFR by using Modified MDRD formula.Chronic kidney disease is defined as either kidney damageor GFR <60 mL/min/1.73 m2 for >3 months. CREATININE (test code = CREAT) 1.30 mg/dL 0.7-1.3 N BUN/CREATININE RATIO (test code = BUN/CREA) 15.4 10-20 N CALCIUM (test code = CA) 8.9 mg/dL 8.5-10.1 N COMPREHENSIVE METABOLIC [id number] 07:24:00* Test Item Value Reference Range Interpretation Comments SODIUM (test code = NA) 139 mmol/L 136-145 N POTASSIUM (test code = K) 3.9 mmol/L 3.5-5.1 N CHLORIDE (test code = CL) 100.0 mmol/L 98-107 N CARBON DIOXIDE (test code = CO2) mmol/L 21-32 ANION GAP (test code = GAP) 10-20 GLUCOSE (test code = GLU) mg/dL 74-106 BLOOD UREA NITROGEN (test code = BUN) mg/dL 7-18 GLOMERULAR FILTRATION RATE (test code = GFR) mL/min >=60 CREATININE (test code = CREAT) mg/dL 0.7-1.3 BUN/CREATININE RATIO (test code = BUN/CREA) 10-20 TOTAL PROTEIN (test code = PROT) gram/dL 6.4-8.2 ALBUMIN (test code = ALB) g/dL 3.4-5.0 GLOBULIN (test code = GLOB) gram/dL 2.7-4.2 ALBUMIN/GLOBULIN RATIO (test code = A/G) 0.75-1.50 CALCIUM (test code = CA) mg/dL 8.5-10.1 BILIRUBIN TOTAL (test code = BILT) mg/dL 0.0-1.0 SGOT/AST (test code = AST) IUnit/L 15-37 SGPT/ALT (test code = ALT) IUnit/L 12-78 ALKALINE PHOSPHATASE TOTAL (test code = ALKP) IUnit/L 45-117 BASIC METABOLIC [id number] 07:22:00* Test Item Value Reference Range Interpretation Comments SODIUM (test code = NA) 137 mmol/L 136-145 N POTASSIUM (test code = K) 3.8 mmol/L 3.5-5.1 N CHLORIDE (test code = CL) 101.0 mmol/L 98-107 N CARBON DIOXIDE (test code = CO2) mmol/L 21-32 ANION GAP (test code = GAP) 10-20 GLUCOSE (test code = GLU) mg/dL 74-106 BLOOD UREA NITROGEN (test code = BUN) mg/dL 7-18 GLOMERULAR FILTRATION RATE (test code = GFR) mL/min >=60 CREATININE (test code = CREAT) mg/dL 0.7-1.3 BUN/CREATININE RATIO (test code = BUN/CREA) 10-20 CALCIUM (test code = CA) mg/dL 8.5-10.1 CBC W/AUTO [id number] 07:21:00* Test Item Value Reference Range Interpretation Comments WHITE BLOOD CELL (test code = WBC) 6.3 K/mm3 4.5-12.5 N RED BLOOD CELL (test code = RBC) 4.51 mill/mm3 4.0-5.8 N HEMOGLOBIN (test code = HGB) 12.1 gram/dL 13.0-17.5 L HEMATOCRIT (test code = HCT) 38.2 % 42.0-52.0 L MEAN CELL VOLUME (test code = MCV) 84.7 fL 80-98 N MEAN CELL HGB (test code = MCH) 26.8 picogram 27.0-33.0 L MEAN CELL HGB CONCETRATION (test code = MCHC) 31.7 gram/dL 33.0-36. 0 L RED CELL DISTRIBUTION WIDTH (test code = RDW) 16.0 % 11.6-16. 2 N RED CELL DISTRIBUTION WIDTH SD (test code = RDW-SD) 49.3 fL 37 .0-51.0 N PLATELET COUNT (test code = PLT) 258 K/mm3 150-450 N MEAN PLATELET VOLUME (test code = MPV) 10.9 fL 6.7-11.0 N NEUTROPHIL % (test code = NT%) 64.5 % 39.0-69.0 N IMMATURE GRANULOCYTE % (test code = IG%) 0.3 % 0.0-5.0 N LYMPHOCYTE % (test code = LY%) 12.2 % 25.0-55.0 L MONOCYTE % (test code = MO%) 13.9 % 0.0-10.0 H EOSINOPHIL % (test code = EO%) 7.7 % 0.0-5.0 H BASOPHIL % (test code = BA%) 1.4 % 0.0-1.0 H NUCLEATED RBC % (test code = NRBC%) 0.0 % 0-0 N NEUTROPHIL # (test code = NT#) 4.08 K/mm3 1.8-7.7 N IMMATURE GRANULOCYTE # (test code = IG#) 0.02 x10 3/uL 0-0.03 N LYMPHOCYTE # (test code = LY#) 0.77 K/mm3 1.0-5.0 L MONOCYTE # (test code = MO#) 0.88 K/mm3 0-0.8 H EOSINOPHIL # (test code = EO#) 0.49 K/mm3 0.0-0.5 N BASOPHIL # (test code = BA#) 0.09 K/mm3 0.0-0.2 N NUCLEATED RBC # (test code = NRBC#) 0.00 K/mm3 0.0-0.1 N MANUAL DIFF REQUIRED (test code = MDIFF) NO [id number] 20:17:00* Test Item Value Reference Range Interpretation Comments GLUBED (test code = GLUBED) 170 mg/dL 74-106 H Performed by certified fruit loader machine operator at [facility] [id number] 16:46:00* Test Item Value Reference Range Interpretation Comments GLUBED (test code = GLUBED) 146 mg/dL 74-106 H Performed by certified fruit loader machine operator at [facility] [id number] 11:35:00* Test Item Value Reference Range Interpretation Comments GLUBED (test code = GLUBED) 161 mg/dL 74-106 H Performed by certified fruit loader machine operator at [facility] [id number] 08:09:00* Test Item Value Reference Range Interpretation Comments GLUBED (test code = GLUBED) 112 mg/dL 74-106 H Performed by certified fruit loader machine operator at [facility] [id number] 02:32:00* Test Item Value Reference Range Interpretation Comments GLUBED (test code = GLUBED) 99 mg/dL 74-106 N Performed by certified fruit loader machine operator at [facility] [id number] 22:36:00* Test Item Value Reference Range Interpretation Comments TROPONIN-I (test code = TROPI) 0.054 ng/mL 0-0.045 HH PREVIOUSLY CALLED COMMENTS TO DIGITAL STRATEGY MANAGER: COLLECT 3 HOURS AFTER PREVIOUS [id number] 21:08:00* Test Item Value Reference Range Interpretation Comments GLUBED (test code = GLUBED) 126 mg/dL 74-106 H [facility] fruit loader [facility]~ [id number] 17:04:00* Test Item Value Reference Range Interpretation Comments GLUBED (test code = GLUBED) 80 mg/dL 74-106 N Performed by certified fruit loader machine operator at [facility] [id number] 17:04:00* Test Item Value Reference Range Interpretation Comments GLUBED (test code = GLUBED) 80 mg/dL 74-106 N Performed by certified fruit loader machine operator at [facility] B-TYPE NATRIURETIC [id number] 11:32:00* Test Item Value Reference Range Interpretation Comments B-TYPE NATRIURETIC PEPTIDE (test code = BNP) 2460.39 pgram/mL 0-100 H BASIC METABOLIC [id number] 11:21:00* Test Item Value Reference Range Interpretation Comments SODIUM (test code = NA) 139 mmol/L 136-145 N POTASSIUM (test code = K) 4.2 mmol/L 3.5-5.1 N CHLORIDE (test code = CL) 102.0 mmol/L 98-107 N CARBON DIOXIDE (test code = CO2) 31.0 mmol/L 21-32 N ANION GAP (test code = GAP) 10.2 10-20 N GLUCOSE (test code = GLU) 60 mg/dL 74-106 L BLOOD UREA NITROGEN (test code = BUN) 13 mg/dL 7-18 N GLOMERULAR FILTRATION RATE (test code = GFR) 60 mL/min >=60 Estimated GFR by using Modified MDRD formula.Chronic kidney disease is defined as either kidney damageor GFR <60 mL/min/1.73 m2 for >3 months. CREATININE (test code = CREAT) 1.20 mg/dL 0.7-1.3 N BUN/CREATININE RATIO (test code = BUN/CREA) 11.1 10-20 N CALCIUM (test code = CA) 8.9 mg/dL 8.5-10.1 N HEPATIC FUNCTION [id number] 11:21:00* Test Item Value Reference Range Interpretation Comments TOTAL PROTEIN (test code = PROT) 7.1 gram/dL 6.4-8.2 N ALBUMIN (test code = ALB) 2.8 g/dL 3.4-5.0 L GLOBULIN (test code = GLOB) 4.3 gram/dL 2.7-4.2 H ALBUMIN/GLOBULIN RATIO (test code = A/G) 0.7 0.75-1.50 L BILIRUBIN TOTAL (test code = BILT) 1.50 mg/dL 0.0-1.0 H BILIRUBIN DIRECT (test code = BILD) 0.41 mg/dL 0.0-0.20 H SGOT/AST (test code = AST) 29 IUnit/L 15-37 N SGPT/ALT (test code = ALT) 28 IUnit/L 12-78 N ALKALINE PHOSPHATASE TOTAL (test code = ALKP) 78 IUnit/L 45-117 N Note change in reference range due to change in reagent. [id number] 11:21:00* Test Item Value Reference Range Interpretation Comments LIPASE (test code = LIP) 97 U/L 73.0-393.0 N [id number] 11:21:00* Test Item Value Reference Range Interpretation Comments TROPONIN-I (test code = TROPI) 0.061 ng/mL 0-0.045 HH Results called to [id number] by V.LAB.ISRRAEL 02/16/20 1120Critical results verified and read back by Nurse? Y BASIC METABOLIC [id number] 11:11:00* Test Item Value Reference Range Interpretation Comments SODIUM (test code = NA) 139 mmol/L 136-145 N POTASSIUM (test code = K) 4.2 mmol/L 3.5-5.1 N CHLORIDE (test code = CL) 102.0 mmol/L 98-107 N CARBON DIOXIDE (test code = CO2) mmol/L 21-32 ANION GAP (test code = GAP) 10-20 GLUCOSE (test code = GLU) mg/dL 74-106 BLOOD UREA NITROGEN (test code = BUN) mg/dL 7-18 GLOMERULAR FILTRATION RATE (test code = GFR) mL/min >=60 CREATININE (test code = CREAT) mg/dL 0.7-1.3 BUN/CREATININE RATIO (test code = BUN/CREA) 10-20 CALCIUM (test code = CA) mg/dL 8.5-10.1 HEPATIC FUNCTION [id number] 11:11:00* Test Item Value Reference Range Interpretation Comments TOTAL PROTEIN (test code = PROT) gram/dL 6.4-8.2 ALBUMIN (test code = ALB) g/dL 3.4-5.0 GLOBULIN (test code = GLOB) gram/dL 2.7-4.2 ALBUMIN/GLOBULIN RATIO (test code = A/G) 0.75-1.50 BILIRUBIN TOTAL (test code = BILT) mg/dL 0.0-1.0 BILIRUBIN DIRECT (test code = BILD) mg/dL 0.0-0.20 SGOT/AST (test code = AST) IUnit/L 15-37 SGPT/ALT (test code = ALT) IUnit/L 12-78 ALKALINE PHOSPHATASE TOTAL (test code = ALKP) IUnit/L 45-117 [id number] 11:11:00* Test Item Value Reference Range Interpretation Comments LIPASE (test code = LIP) U/L 73.0-393.0 [id number] 11:11:00* Test Item Value Reference Range Interpretation Comments TROPONIN-I (test code = TROPI) ng/mL 0-0.045 PROTHROMBIN [id number] 11:06:00* Test Item Value Reference Range Interpretation Comments PROTHROMBIN TIME PATIENT (test code = PTP) 14.4 seconds 9.0-14.0 H INTERNATIONAL NORMAL RATIO (test code = INR) 1.2 0.8-1.2 N The therapeutic range for oral anticoagulant therapy formost indications is an international normalized ratio (INR)of between 2.0 and 3.0. The recommended therapeutic INRrange for various clinical situations is listed below: Clinical Situation INR range Pulmonary e mbolism treatment (2.0-3.0)Venous thrombosis treatmentVenous thrombosis prophylaxis (high risk surgery)Prevention of systemic embolism from: Acute myocardial infarction Valvular heart disease Atrial fibrillation Mechanical prosthetic heart valves (2.5-3.5) IS PATIENT ON ANTICOAGULANTS? NTHROMBOPLASTIN TIME [id number] 11:06:00* Test Item Value Reference Range Interpretation Comments THROMBOPLASTIN TIME PARTIAL (test code = PTT) 27.8 seconds 23.0-37. 0 N IS PATIENT ON ANTICOAGULANTS? NURINALYSIS [id number] 10:55:00* Test Item Value Reference Range Interpretation Comments UA COLOR (test code = COLU) Light-Yellow YELLOW UA APPEARANCE (test code = APPU) CLEAR CLEAR UA GLUCOSE DIPSTICK (test code = DGLUU) NEGATIVE mg/dL NEGATIVE UA BILIRUBIN DIPSTICK (test code = BILU) NEGATIVE mg/dL NEGATIVE UA KETONE DIPSTICK (test code = KETU) NEGATIVE mg/dL NEGATIVE UA SPECIFIC GRAVITY (test code = SGU) 1.006 1.001-1.035 UA BLOOD DIPSTICK (test code = [place]) Negative mg/dL NEGATIVE UA PH DIPSTICK (test code = GISELA) 6.0 5.0-8.0 UA PROTEIN DIPSTICK (test code = PROU) NEGATIVE mg/dL NEGATIVE UA UROBILINIOGEN DIPSTICK (test code = URO) Normal mg/dL NEGATIVE UA NITRITE DIPSTICK (test code = LAINEY) NEGATIVE NEGATIVE UA LEUKOCYTE ESTERASE W REFLEX (test code = LEUUR) NEGATIVE Sen/uL NEGATIVE UA WBC (test code = WBCU) 0-5 per HPF 0-5 UA RBC (test code = RBCU) 0-3 #/HPF 0-5 UA EPITHELIAL CELLS (test code = EPIU) None seen per HPF FEW UA BACTERIA (test code = BACU) NONE SEEN #/HPF NONE UA MUCUS (test code = MUCU) FEW #/LPF FEW Urine Source? Clean CatchCBC W/O [id number] 10:50:00* Test Item Value Reference Range Interpretation Comments WHITE BLOOD CELL (test code = WBC) 7.8 K/mm3 4.5-12.5 N RED BLOOD CELL (test code = RBC) 4.70 mill/mm3 4.0-5.8 N HEMOGLOBIN (test code = HGB) 12.9 gram/dL 13.0-17.5 L HEMATOCRIT (test code = HCT) 39.8 % 42.0-52.0 L MEAN CELL VOLUME (test code = MCV) 84.7 fL 80-98 N MEAN CELL HGB (test code = MCH) 27.4 picogram 27.0-33.0 N MEAN CELL HGB CONCETRATION (test code = MCHC) 32.4 gram/dL 33.0-36. 0 L RED CELL DISTRIBUTION WIDTH (test code = RDW) 16.0 % 11.6-16. 2 N PLATELET COUNT (test code = PLT) 277 K/mm3 150-450 N MEAN PLATELET VOLUME (test code = MPV) 10.6 fL 6.7-11.0 N - XR CHEST 1 [id number] 10:49:00 FAX: Kb Villarreal MD [phone] [place]: St: PRE FAX: Natty Harris DO Name: OBDULIA GARCIA [facility] : 1950 Age/S: 69/M [address] [facility] Unit #: [id number] Loc: [facility] [place]NY [address] Phys: Natty Harris DO Acct: [id number] Dis Date: Status: PRE ER PHONE #: [phone] Exam Date: 02/16/2020 1043 FAX #: [phone] Reason: chf EXAMS: CPT CODE: [id number] XR CHEST 1 V 62826 HISTORY: CHF. COMPARISON: January 29, 2019. Location: [facility]. Brachiocephalic stent noted on the left side. Interstitial infiltrates or edema. Trace left effusion. Dependent changes. Cardiomegaly. IMPRESSION: Mild interstitial e elisabet or infiltrate. Electronically Signed by Kamala Medina on at 1049 Reported and signed by: Maia Alcala CC: Kb Feng MD; Natty Harris DO Technologist: Mya Cisneros(Pavan) Ene rnscrd Date/Time/By: 02/16/2020 (5521) : By: [email or web address] Orig Print D/T: S: 02/16/2020 (9650) PAGE 1 Sign ed Report COMPREHENSIVE METABOLIC [id number] 06:39:00* Test Item Value Reference Range Interpretation Comments SODIUM (test code = NA) 142 mmol/L 136-145 N POTASSIUM (test code = K) 4.4 mmol/L 3.5-5.1 N CHLORIDE (test code = CL) 107.0 mmol/L 98-107 N CARBON DIOXIDE (test code = CO2) 29.0 mmol/L 21-32 N ANION GAP (test code = GAP) 10.4 10-20 N GLUCOSE (test code = GLU) 156 mg/dL 74-106 H BLOOD UREA NITROGEN (test code = BUN) 15 mg/dL 7-18 N GLOMERULAR FILTRATION RATE (test code = GFR) 60 mL/min >=60 Estimated GFR by using Modified MDRD formula.Chronic kidney disease is defined as either kidney damageor GFR <60 mL/min/1.73 m2 for >3 months. CREATININE (test code = CREAT) 1.20 mg/dL 0.7-1.3 N BUN/CREATININE RATIO (test code = BUN/CREA) 12.4 10-20 N TOTAL PROTEIN (test code = PROT) 6.0 gram/dL 6.4-8.2 L ALBUMIN (test code = ALB) 2.5 g/dL 3.4-5.0 L GLOBULIN (test code = GLOB) 3.5 gram/dL 2.7-4.2 N ALBUMIN/GLOBULIN RATIO (test code = A/G) 0.7 0.75-1.50 L CALCIUM (test code = CA) 8.1 mg/dL 8.5-10.1 L BILIRUBIN TOTAL (test code = BILT) 0.60 mg/dL 0.0-1.0 N SGOT/AST (test code = AST) 9 IUnit/L 15-37 L SGPT/ALT (test code = ALT) 17 IUnit/L 12-78 N ALKALINE PHOSPHATASE TOTAL (test code = ALKP) 50 IUnit/L 45-117 N Note change in reference range due to change in reagent. COMPREHENSIVE METABOLIC [id number] 06:36:00* Test Item Value Reference Range Interpretation Comments SODIUM (test code = NA) 142 mmol/L 136-145 N POTASSIUM (test code = K) 4.4 mmol/L 3.5-5.1 N CHLORIDE (test code = CL) 107.0 mmol/L 98-107 N CARBON DIOXIDE (test code = CO2) mmol/L 21-32 ANION GAP (test code = GAP) 10-20 GLUCOSE (test code = GLU) mg/dL 74-106 BLOOD UREA NITROGEN (test code = BUN) mg/dL 7-18 GLOMERULAR FILTRATION RATE (test code = GFR) mL/min >=60 CREATININE (test code = CREAT) mg/dL 0.7-1.3 BUN/CREATININE RATIO (test code = BUN/CREA) 10-20 TOTAL PROTEIN (test code = PROT) gram/dL 6.4-8.2 ALBUMIN (test code = ALB) g/dL 3.4-5.0 GLOBULIN (test code = GLOB) gram/dL 2.7-4.2 ALBUMIN/GLOBULIN RATIO (test code = A/G) 0.75-1.50 CALCIUM (test code = CA) mg/dL 8.5-10.1 BILIRUBIN TOTAL (test code = BILT) mg/dL 0.0-1.0 SGOT/AST (test code = AST) IUnit/L 15-37 SGPT/ALT (test code = ALT) IUnit/L 12-78 ALKALINE PHOSPHATASE TOTAL (test code = ALKP) IUnit/L 45-117 [id number] 06:20:00* Test Item Value Reference Range Interpretation Comments GLUBED (test code = GLUBED) 150 mg/dL 74-106 H Performed by certified fruit loader machine operator at [facility] CBC W/AUTO [id number] 05:54:00* Test Item Value Reference Range Interpretation Comments WHITE BLOOD CELL (test code = WBC) 8.0 K/mm3 4.5-12.5 N RED BLOOD CELL (test code = RBC) 4.48 mill/mm3 4.0-5.8 N HEMOGLOBIN (test code = HGB) 13.4 gram/dL 13.0-17.5 N HEMATOCRIT (test code = HCT) 40.7 % 42.0-52.0 L MEAN CELL VOLUME (test code = MCV) 90.8 fL 80-98 N MEAN CELL HGB (test code = MCH) 29.9 picogram 27.0-33.0 N MEAN CELL HGB CONCETRATION (test code = MCHC) 32.9 gram/dL 33.0-36. 0 L RED CELL DISTRIBUTION WIDTH (test code = RDW) 12.3 % 11.6-16. 2 N RED CELL DISTRIBUTION WIDTH SD (test code = RDW-SD) 40.8 fL 37 .0-51.0 N PLATELET COUNT (test code = PLT) 165 K/mm3 150-450 N MEAN PLATELET VOLUME (test code = MPV) 12.1 fL 6.7-11.0 H NEUTROPHIL % (test code = NT%) 68.9 % 39.0-69.0 N IMMATURE GRANULOCYTE % (test code = IG%) 0.4 % 0.0-5.0 N LYMPHOCYTE % (test code = LY%) 16.4 % 25.0-55.0 L MONOCYTE % (test code = MO%) 8.9 % 0.0-10.0 N EOSINOPHIL % (test code = EO%) 4.6 % 0.0-5.0 N BASOPHIL % (test code = BA%) 0.8 % 0.0-1.0 N NUCLEATED RBC % (test code = NRBC%) 0.0 % 0-0 N NEUTROPHIL # (test code = NT#) 5.51 K/mm3 1.8-7.7 N IMMATURE GRANULOCYTE # (test code = IG#) 0.03 x10 3/uL 0-0.03 N LYMPHOCYTE # (test code = LY#) 1.31 K/mm3 1.0-5.0 N MONOCYTE # (test code = MO#) 0.71 K/mm3 0-0.8 N EOSINOPHIL # (test code = EO#) 0.37 K/mm3 0.0-0.5 N BASOPHIL # (test code = BA#) 0.06 K/mm3 0.0-0.2 N NUCLEATED RBC # (test code = NRBC#) 0.00 K/mm3 0.0-0.1 N [id number] 22:09:00* Test Item Value Reference Range Interpretation Comments GLUBED (test code = GLUBED) 339 mg/dL 74-106 H Performed by certified fruit loader machine operator at [facility] COAGULATION TIME [id number] 10:37:00* Test Item Value Reference Range Interpretation Comments COAGULATION TIME ACTIVATED (test code = ACT) 147 seconds 62.8-88.0 H [id number] 09:03:00* Test Item Value Reference Range Interpretation Comments GLUBED (test code = GLUBED) 197 mg/dL 74-106 H Performed by certified fruit loader machine operator at [facility] COMPREHENSIVE METABOLIC [id number] 10:46:00* Test Item Value Reference Range Interpretation Comments SODIUM (test code = NA) 140 mmol/L 136-145 N POTASSIUM (test code = K) 4.4 mmol/L 3.5-5.1 N CHLORIDE (test code = CL) 105.0 mmol/L 98-107 N CARBON DIOXIDE (test code = CO2) 28.0 mmol/L 21-32 N ANION GAP (test code = GAP) 11.4 10-20 N GLUCOSE (test code = GLU) 207 mg/dL 74-106 H BLOOD UREA NITROGEN (test code = BUN) 17 mg/dL 7-18 N GLOMERULAR FILTRATION RATE (test code = GFR) 55 mL/min >=60 Estimated GFR by using Modified MDRD formula.Chronic kidney disease is defined as either kidney damageor GFR <60 mL/min/1.73 m2 for >3 months. CREATININE (test code = CREAT) 1.30 mg/dL 0.7-1.3 N BUN/CREATININE RATIO (test code = BUN/CREA) 13.0 10-20 N TOTAL PROTEIN (test code = PROT) 7.6 gram/dL 6.4-8.2 N ALBUMIN (test code = ALB) 3.3 g/dL 3.4-5.0 L GLOBULIN (test code = GLOB) 4.3 gram/dL 2.7-4.2 H ALBUMIN/GLOBULIN RATIO (test code = A/G) 0.8 0.75-1.50 N CALCIUM (test code = CA) 8.9 mg/dL 8.5-10.1 N BILIRUBIN TOTAL (test code = BILT) 0.90 mg/dL 0.0-1.0 N SGOT/AST (test code = AST) 11 IUnit/L 15-37 L SGPT/ALT (test code = ALT) 24 IUnit/L 12-78 N ALKALINE PHOSPHATASE TOTAL (test code = ALKP) 65 IUnit/L 45-117 N Note change in reference range due to change in reagent. LIPID PROFILE (CORONARY RISK)2019-04-03 10:46:00* Test Item Value Reference Range Interpretation Comments TRIGLYCERIDES (test code = TRIG) 97 mg/dL 20-150 N CHOLESTEROL (test code = CHOL) 134 mg/dL 0-200 N CHOLESTEROL/HDL RATIO (test code = CHOLHDL) 3.0 RATIO 0-4.9 N RISK ASSOCIATED WITH CHOL/HDL RATIOS: Risk Male Female1/2 AVERAGE 3.43 3.27AVERAGE 4.97 4.442X AVERAGE 9.55 7.053X AVERAGE 23.39 11.04 REFERENCE VALUE IS RELATED TO RISK LEVELS ASRECOMMENDED BY THE [facility]. HEART, LUNG, AND BLOOD INST. HDL CHOLESTEROL (test code = HDL) 42 mg/dL 40-60 N LIPOPROTEIN LDL (test code = LDL) 80 mg/dL 100-129 L Reference Interval: mg/dL mmol/L Optimal <100 <2.6Near/above optimal 100-129 2.6- 3.3Borderline High 130-159 3.4-4.1High 160-189 4.1-4.9Very High >=190 >=4.9========= This LDL result is a direct measurement.========= COMPREHENSIVE METABOLIC [id number] 10:40:00* Test Item Value Reference Range Interpretation Comments SODIUM (test code = NA) 140 mmol/L 136-145 N POTASSIUM (test code = K) 4.4 mmol/L 3.5-5.1 N CHLORIDE (test code = CL) 105.0 mmol/L 98-107 N CARBON DIOXIDE (test code = CO2) mmol/L 21-32 ANION GAP (test code = GAP) 10-20 GLUCOSE (test code = GLU) mg/dL 74-106 BLOOD UREA NITROGEN (test code = BUN) mg/dL 7-18 GLOMERULAR FILTRATION RATE (test code = GFR) mL/min >=60 CREATININE (test code = CREAT) mg/dL 0.7-1.3 BUN/CREATININE RATIO (test code = BUN/CREA) 10-20 TOTAL PROTEIN (test code = PROT) gram/dL 6.4-8.2 ALBUMIN (test code = ALB) g/dL 3.4-5.0 GLOBULIN (test code = GLOB) gram/dL 2.7-4.2 ALBUMIN/GLOBULIN RATIO (test code = A/G) 0.75-1.50 CALCIUM (test code = CA) mg/dL 8.5-10.1 BILIRUBIN TOTAL (test code = BILT) mg/dL 0.0-1.0 SGOT/AST (test code = AST) IUnit/L 15-37 SGPT/ALT (test code = ALT) IUnit/L 12-78 ALKALINE PHOSPHATASE TOTAL (test code = ALKP) IUnit/L 45-117 LIPID PROFILE (CORONARY RISK)2019-04-03 10:40:00* Test Item Value Reference Range Interpretation Comments TRIGLYCERIDES (test code = TRIG) mg/dL 20-150 CHOLESTEROL (test code = CHOL) mg/dL 0-200 CHOLESTEROL/HDL RATIO (test code = CHOLHDL) RATIO 0-4.9 HDL CHOLESTEROL (test code = HDL) mg/dL 40-60 LIPOPROTEIN LDL (test code = LDL) mg/dL 100-129 CBC W/AUTO [id number] 10:15:00* Test Item Value Reference Range Interpretation Comments WHITE BLOOD CELL (test code = WBC) 8.0 K/mm3 4.5-12.5 N RED BLOOD CELL (test code = RBC) 5.38 mill/mm3 4.0-5.8 N HEMOGLOBIN (test code = HGB) 16.0 gram/dL 13.0-17.5 N HEMATOCRIT (test code = HCT) 48.0 % 42.0-52.0 N MEAN CELL VOLUME (test code = MCV) 89.2 fL 80-98 N MEAN CELL HGB (test code = MCH) 29.7 picogram 27.0-33.0 N MEAN CELL HGB CONCETRATION (test code = MCHC) 33.3 gram/dL 33.0-36. 0 N RED CELL DISTRIBUTION WIDTH (test code = RDW) 12.3 % 11.6-16. 2 N RED CELL DISTRIBUTION WIDTH SD (test code = RDW-SD) 40.2 fL 37 .0-51.0 N PLATELET COUNT (test code = PLT) 198 K/mm3 150-450 N MEAN PLATELET VOLUME (test code = MPV) 11.5 fL 6.7-11.0 H NEUTROPHIL % (test code = NT%) 71.8 % 39.0-69.0 H IMMATURE GRANULOCYTE % (test code = IG%) 0.4 % 0.0-5.0 N LYMPHOCYTE % (test code = LY%) 16.8 % 25.0-55.0 L MONOCYTE % (test code = MO%) 6.8 % 0.0-10.0 N EOSINOPHIL % (test code = EO%) 3.4 % 0.0-5.0 N BASOPHIL % (test code = BA%) 0.8 % 0.0-1.0 N NUCLEATED RBC % (test code = NRBC%) 0.0 % 0-0 N NEUTROPHIL # (test code = NT#) 5.74 K/mm3 1.8-7.7 N IMMATURE GRANULOCYTE # (test code = IG#) 0.03 x10 3/uL 0-0.03 N LYMPHOCYTE # (test code = LY#) 1.34 K/mm3 1.0-5.0 N MONOCYTE # (test code = MO#) 0.54 K/mm3 0-0.8 N EOSINOPHIL # (test code = EO#) 0.27 K/mm3 0.0-0.5 N BASOPHIL # (test code = BA#) 0.06 K/mm3 0.0-0.2 N NUCLEATED RBC # (test code = NRBC#) 0.00 K/mm3 0.0-0.1 N MANUAL DIFF REQUIRED (test code = MDIFF) NO CBC W/AUTO [id number] 10:06:00* Test Item Value Reference Range Interpretation Comments WHITE BLOOD CELL (test code = WBC) K/mm3 4.5-12.5 RED BLOOD CELL (test code = RBC) mill/mm3 4.0-5.8 HEMOGLOBIN (test code = HGB) 16.0 gram/dL 13.0-17.5 N HEMATOCRIT (test code = HCT) 48.0 % 42.0-52.0 N MEAN CELL VOLUME (test code = MCV) fL 80-98 MEAN CELL HGB (test code = MCH) picogram 27.0-33.0 MEAN CELL HGB CONCETRATION (test code = MCHC) gram/dL 33.0-36. 0 RED CELL DISTRIBUTION WIDTH (test code = RDW) % 11.6-16. 2 RED CELL DISTRIBUTION WIDTH SD (test code = RDW-SD) fL 37 .0-51.0 PLATELET COUNT (test code = PLT) K/mm3 150-450 MEAN PLATELET VOLUME (test code = MPV) fL 6.7-11.0 NEUTROPHIL % (test code = NT%) % 39.0-69.0 IMMATURE GRANULOCYTE % (test code = IG%) % 0.0-5.0 LYMPHOCYTE % (test code = LY%) % 25.0-55.0 MONOCYTE % (test code = MO%) % 0.0-10.0 EOSINOPHIL % (test code = EO%) % 0.0-5.0 BASOPHIL % (test code = BA%) % 0.0-1.0 NEUTROPHIL # (test code = NT#) K/mm3 1.8-7.7 LYMPHOCYTE # (test code = LY#) K/mm3 1.0-5.0 MONOCYTE # (test code = MO#) K/mm3 0-0.8 EOSINOPHIL # (test code = EO#) K/mm3 0.0-0.5 BASOPHIL # (test code = BA#) K/mm3 0.0-0.2 COAGULATION TIME [id number] 14:10:00* Test Item Value Reference Range Interpretation Comments COAGULATION TIME ACTIVATED (test code = ACT) 124 seconds 62.8-88.0 H [id number] 11:53:00* Test Item Value Reference Range Interpretation Comments GLUBED (test code = GLUBED) 208 mg/dL 74-106 H Performed by certified fruit loader machine operator at [facility] BASIC METABOLIC [id number] 05:25:00* Test Item Value Reference Range Interpretation Comments SODIUM (test code = NA) 140 mmol/L 136-145 N POTASSIUM (test code = K) 4.0 mmol/L 3.5-5.1 N CHLORIDE (test code = CL) 106.0 mmol/L 98-107 N CARBON DIOXIDE (test code = CO2) mmol/L 21-32 ANION GAP (test code = GAP) 10-20 GLUCOSE (test code = GLU) mg/dL 74-106 BLOOD UREA NITROGEN (test code = BUN) mg/dL 7-18 GLOMERULAR FILTRATION RATE (test code = GFR) mL/min >=60 CREATININE (test code = CREAT) mg/dL 0.7-1.3 BUN/CREATININE RATIO (test code = BUN/CREA) 10-20 CALCIUM (test code = CA) mg/dL 8.5-10.1 BASIC METABOLIC [id number] 05:25:00* Test Item Value Reference Range Interpretation Comments SODIUM (test code = NA) 140 mmol/L 136-145 N POTASSIUM (test code = K) 4.0 mmol/L 3.5-5.1 N CHLORIDE (test code = CL) 106.0 mmol/L 98-107 N CARBON DIOXIDE (test code = CO2) 28.0 mmol/L 21-32 N ANION GAP (test code = GAP) 10.0 10-20 N GLUCOSE (test code = GLU) 162 mg/dL 74-106 H BLOOD UREA NITROGEN (test code = BUN) 15 mg/dL 7-18 N GLOMERULAR FILTRATION RATE (test code = GFR) > 60 mL/min >=60 Estimated GFR by using Modified MDRD formula.Chronic kidney disease is defined as either kidney damageor GFR <60 mL/min/1.73 m2 for >3 months. CREATININE (test code = CREAT) 1.10 mg/dL 0.7-1.3 N BUN/CREATININE RATIO (test code = BUN/CREA) 13.6 10-20 N CALCIUM (test code = CA) 8.0 mg/dL 8.5-10.1 L [id number] 05:17:00* Test Item Value Reference Range Interpretation Comments GLUBED (test code = GLUBED) 165 mg/dL 74-106 H Performed by certified fruit loader machine operator at [facility] CBC W/AUTO [id number] 04:58:00* Test Item Value Reference Range Interpretation Comments WHITE BLOOD CELL (test code = WBC) 7.9 K/mm3 4.5-12.5 N RED BLOOD CELL (test code = RBC) 4.73 mill/mm3 4.0-5.8 N HEMOGLOBIN (test code = HGB) 13.9 gram/dL 13.0-17.5 N HEMATOCRIT (test code = HCT) 43.1 % 42.0-52.0 N MEAN CELL VOLUME (test code = MCV) 91.1 fL 80-98 N MEAN CELL HGB (test code = MCH) 29.4 picogram 27.0-33.0 N MEAN CELL HGB CONCETRATION (test code = MCHC) 32.3 gram/dL 33.0-36. 0 L RED CELL DISTRIBUTION WIDTH (test code = RDW) 12.1 % 11.6-16. 2 N RED CELL DISTRIBUTION WIDTH SD (test code = RDW-SD) 40.4 fL 37 .0-51.0 N PLATELET COUNT (test code = PLT) 175 K/mm3 150-450 N MEAN PLATELET VOLUME (test code = MPV) 11.6 fL 6.7-11.0 H NEUTROPHIL % (test code = NT%) 64.8 % 39.0-69.0 N IMMATURE GRANULOCYTE % (test code = IG%) 0.5 % 0.0-5.0 N LYMPHOCYTE % (test code = LY%) 19.5 % 25.0-55.0 L MONOCYTE % (test code = MO%) 8.8 % 0.0-10.0 N EOSINOPHIL % (test code = EO%) 5.5 % 0.0-5.0 H BASOPHIL % (test code = BA%) 0.9 % 0.0-1.0 N NUCLEATED RBC % (test code = NRBC%) 0.0 % 0-0 N NEUTROPHIL # (test code = NT#) 5.10 K/mm3 1.8-7.7 N IMMATURE GRANULOCYTE # (test code = IG#) 0.04 x10 3/uL 0-0.03 H LYMPHOCYTE # (test code = LY#) 1.53 K/mm3 1.0-5.0 N MONOCYTE # (test code = MO#) 0.69 K/mm3 0-0.8 N EOSINOPHIL # (test code = EO#) 0.43 K/mm3 0.0-0.5 N BASOPHIL # (test code = BA#) 0.07 K/mm3 0.0-0.2 N NUCLEATED RBC # (test code = NRBC#) 0.00 K/mm3 0.0-0.1 N CBC W/AUTO [id number] 04:52:00* Test Item Value Reference Range Interpretation Comments WHITE BLOOD CELL (test code = WBC) K/mm3 4.5-12.5 RED BLOOD CELL (test code = RBC) mill/mm3 4.0-5.8 HEMOGLOBIN (test code = HGB) 13.9 gram/dL 13.0-17.5 N HEMATOCRIT (test code = HCT) 43.1 % 42.0-52.0 N MEAN CELL VOLUME (test code = MCV) fL 80-98 MEAN CELL HGB (test code = MCH) picogram 27.0-33.0 MEAN CELL HGB CONCETRATION (test code = MCHC) gram/dL 33.0-36. 0 RED CELL DISTRIBUTION WIDTH (test code = RDW) % 11.6-16. 2 RED CELL DISTRIBUTION WIDTH SD (test code = RDW-SD) fL 37 .0-51.0 PLATELET COUNT (test code = PLT) K/mm3 150-450 MEAN PLATELET VOLUME (test code = MPV) fL 6.7-11.0 NEUTROPHIL % (test code = NT%) % 39.0-69.0 IMMATURE GRANULOCYTE % (test code = IG%) % 0.0-5.0 LYMPHOCYTE % (test code = LY%) % 25.0-55.0 MONOCYTE % (test code = MO%) % 0.0-10.0 EOSINOPHIL % (test code = EO%) % 0.0-5.0 BASOPHIL % (test code = BA%) % 0.0-1.0 NEUTROPHIL # (test code = NT#) K/mm3 1.8-7.7 LYMPHOCYTE # (test code = LY#) K/mm3 1.0-5.0 MONOCYTE # (test code = MO#) K/mm3 0-0.8 EOSINOPHIL # (test code = EO#) K/mm3 0.0-0.5 BASOPHIL # (test code = BA#) K/mm3 0.0-0.2 COAGULATION TIME [id number] 23:16:00* Test Item Value Reference Range Interpretation Comments COAGULATION TIME ACTIVATED (test code = ACT) 197 seconds 62.8-88.0 H [id number] 21:21:00* Test Item Value Reference Range Interpretation Comments GLUBED (test code = GLUBED) 184 mg/dL 74-106 H Performed by certified fruit loader machine operator at [facility] [id number] 15:59:00* Test Item Value Reference Range Interpretation Comments GLUBED (test code = GLUBED) 266 mg/dL 74-106 H Performed by certified fruit loader machine operator at [facility] [id number] 11:28:00* Test Item Value Reference Range Interpretation Comments GLUBED (test code = GLUBED) 191 mg/dL 74-106 H Performed by certified fruit loader machine operator at [facility] [id number] 07:58:00* Test Item Value Reference Range Interpretation Comments GLUBED (test code = GLUBED) 232 mg/dL 74-106 H Performed by certified fruit loader machine operator at [facility] COMPREHENSIVE METABOLIC [id number] 11:54:00* Test Item Value Reference Range Interpretation Comments SODIUM (test code = NA) 138 mmol/L 136-145 N POTASSIUM (test code = K) 4.5 mmol/L 3.5-5.1 N CHLORIDE (test code = CL) 104.0 mmol/L 98-107 N CARBON DIOXIDE (test code = CO2) 26.0 mmol/L 21-32 N ANION GAP (test code = GAP) 12.5 10-20 N GLUCOSE (test code = GLU) 248 mg/dL 74-106 H BLOOD UREA NITROGEN (test code = BUN) 19 mg/dL 7-18 H GLOMERULAR FILTRATION RATE (test code = GFR) 50 mL/min >=60 Estimated GFR by using Modified MDRD formula.Chronic kidney disease is defined as either kidney damageor GFR <60 mL/min/1.73 m2 for >3 months. CREATININE (test code = CREAT) 1.40 mg/dL 0.7-1.3 H BUN/CREATININE RATIO (test code = BUN/CREA) 13.6 10-20 N TOTAL PROTEIN (test code = PROT) 7.6 gram/dL 6.4-8.2 N ALBUMIN (test code = ALB) 3.3 g/dL 3.4-5.0 L GLOBULIN (test code = GLOB) 4.3 gram/dL 2.7-4.2 H ALBUMIN/GLOBULIN RATIO (test code = A/G) 0.8 0.75-1.50 N CALCIUM (test code = CA) 9.1 mg/dL 8.5-10.1 N BILIRUBIN TOTAL (test code = BILT) 0.80 mg/dL 0.0-1.0 N SGOT/AST (test code = AST) 15 IUnit/L 15-37 N SGPT/ALT (test code = ALT) 30 IUnit/L 12-78 N ALKALINE PHOSPHATASE TOTAL (test code = ALKP) 68 IUnit/L 45-117 N Note change in reference range due to change in reagent. LIPID PROFILE (CORONARY RISK)2019-01-29 11:54:00* Test Item Value Reference Range Interpretation Comments TRIGLYCERIDES (test code = TRIG) 97 mg/dL 20-150 N CHOLESTEROL (test code = CHOL) 125 mg/dL 0-200 N CHOLESTEROL/HDL RATIO (test code = CHOLHDL) 2.0 RATIO 0-4.9 N RISK ASSOCIATED WITH CHOL/HDL RATIOS: Risk Male Female1/2 AVERAGE 3.43 3.27AVERAGE 4.97 4.442X AVERAGE 9.55 7.053X AVERAGE 23.39 11.04 REFERENCE VALUE IS RELATED TO RISK LEVELS ASRECOMMENDED BY THE [facility]. HEART, LUNG, AND BLOOD INST. HDL CHOLESTEROL (test code = HDL) 47 mg/dL 40-60 N LIPOPROTEIN LDL (test code = LDL) 70 mg/dL 100-129 L Reference Interval: mg/dL mmol/L Optimal <100 <2.6Near/above optimal 100-129 2.6- 3.3Borderline High 130-159 3.4-4.1High 160-189 4.1-4.9Very High >=190 >=4.9========= This LDL result is a direct measurement.========= THYROID STIMULATING [id number] 11:54:00* Test Item Value Reference Range Interpretation Comments THYROID STIMULATING HORMONE (test code = TSH) 1.120 uIU/mL 0.36-3.7 4 N TSH REFERENCE RANGES: EUTHYROID: 0.35 - 4.3 mIU/mL HYPO : > 5.5 mIU/mL HYPER : < 0.35 mIU/mL COMPREHENSIVE METABOLIC [id number] 11:40:00* Test Item Value Reference Range Interpretation Comments SODIUM (test code = NA) 138 mmol/L 136-145 N POTASSIUM (test code = K) 4.5 mmol/L 3.5-5.1 N CHLORIDE (test code = CL) 104.0 mmol/L 98-107 N CARBON DIOXIDE (test code = CO2) mmol/L 21-32 ANION GAP (test code = GAP) 10-20 GLUCOSE (test code = GLU) mg/dL 74-106 BLOOD UREA NITROGEN (test code = BUN) mg/dL 7-18 GLOMERULAR FILTRATION RATE (test code = GFR) mL/min >=60 CREATININE (test code = CREAT) mg/dL 0.7-1.3 BUN/CREATININE RATIO (test code = BUN/CREA) 10-20 TOTAL PROTEIN (test code = PROT) gram/dL 6.4-8.2 ALBUMIN (test code = ALB) g/dL 3.4-5.0 GLOBULIN (test code = GLOB) gram/dL 2.7-4.2 ALBUMIN/GLOBULIN RATIO (test code = A/G) 0.75-1.50 CALCIUM (test code = CA) mg/dL 8.5-10.1 BILIRUBIN TOTAL (test code = BILT) mg/dL 0.0-1.0 SGOT/AST (test code = AST) IUnit/L 15-37 SGPT/ALT (test code = ALT) IUnit/L 12-78 ALKALINE PHOSPHATASE TOTAL (test code = ALKP) IUnit/L 45-117 LIPID PROFILE (CORONARY RISK)2019-01-29 11:40:00* Test Item Value Reference Range Interpretation Comments TRIGLYCERIDES (test code = TRIG) mg/dL 20-150 CHOLESTEROL (test code = CHOL) mg/dL 0-200 CHOLESTEROL/HDL RATIO (test code = CHOLHDL) RATIO 0-4.9 HDL CHOLESTEROL (test code = HDL) mg/dL 40-60 LIPOPROTEIN LDL (test code = LDL) mg/dL 100-129 THYROID STIMULATING [id number] 11:40:00* Test Item Value Reference Range Interpretation Comments THYROID STIMULATING HORMONE (test code = TSH) uIU/mL 0.36-3.7 4 [id number] 11:06:00* Test Item Value Reference Range Interpretation Comments GLYCOSYLATED HEMOGLOBIN (HA1C) (test code = GLYHGB) 10.8 % HbA1 4. 8-6.0 H ESTIMATED AVERAGE GLUCOSE (test code = EAG) 263 MG/DL CBC W/AUTO [id number] 10:48:00* Test Item Value Reference Range Interpretation Comments WHITE BLOOD CELL (test code = WBC) 9.8 K/mm3 4.5-12.5 N RED BLOOD CELL (test code = RBC) 5.46 mill/mm3 4.0-5.8 N HEMOGLOBIN (test code = HGB) 16.1 gram/dL 13.0-17.5 N HEMATOCRIT (test code = HCT) 48.5 % 42.0-52.0 N MEAN CELL VOLUME (test code = MCV) 88.8 fL 80-98 N MEAN CELL HGB (test code = MCH) 29.5 picogram 27.0-33.0 N MEAN CELL HGB CONCETRATION (test code = MCHC) 33.2 gram/dL 33.0-36. 0 N RED CELL DISTRIBUTION WIDTH (test code = RDW) 12.4 % 11.6-16. 2 N RED CELL DISTRIBUTION WIDTH SD (test code = RDW-SD) 40.4 fL 37 .0-51.0 N PLATELET COUNT (test code = PLT) 199 K/mm3 150-450 N MEAN PLATELET VOLUME (test code = MPV) 11.7 fL 6.7-11.0 H NEUTROPHIL % (test code = NT%) 77.0 % 39.0-69.0 H IMMATURE GRANULOCYTE % (test code = IG%) 0.3 % 0.0-5.0 N LYMPHOCYTE % (test code = LY%) 12.2 % 25.0-55.0 L MONOCYTE % (test code = MO%) 7.7 % 0.0-10.0 N EOSINOPHIL % (test code = EO%) 2.0 % 0.0-5.0 N BASOPHIL % (test code = BA%) 0.8 % 0.0-1.0 N NUCLEATED RBC % (test code = NRBC%) 0.0 % 0-0 N NEUTROPHIL # (test code = NT#) 7.51 K/mm3 1.8-7.7 N IMMATURE GRANULOCYTE # (test code = IG#) 0.03 x10 3/uL 0-0.03 N LYMPHOCYTE # (test code = LY#) 1.19 K/mm3 1.0-5.0 N MONOCYTE # (test code = MO#) 0.75 K/mm3 0-0.8 N EOSINOPHIL # (test code = EO#) 0.20 K/mm3 0.0-0.5 N BASOPHIL # (test code = BA#) 0.08 K/mm3 0.0-0.2 N NUCLEATED RBC # (test code = NRBC#) 0.00 K/mm3 0.0-0.1 N MANUAL DIFF REQUIRED (test code = MDIFF) NO - XR CHEST 2 [id number] 10:45:00 FAX: Kb Villarreal MD [phone] [place]: O St: PRE FAX: Lilliana Ruth [phone] Name: OBDULIA GARCIA [facility] : 1950 Age/S: 68/M [address] [facility] Unit #: [id number] Loc: [place] [address] Phys: Lilliana Delaney MD Acct: [id number] Dis Date: Status: PRE SDC PHONE #: [phone] Exam Date: 01/29/2019 1045 FAX #: [phone] Reason: PRE OP EXAMS: CPT CODE: [id number] XR CHEST 2 V [id number] HISTORY: Preop. COMPARISON chest x-ray from November 05, 2014. AP and lateral view of the chest: No acute infiltrates, effusion or congestion. Lung scarring. Stent in the subclavian vessel on the left. Cardiac silhouette is mildly enlarged. IMPRESSION: No acute infiltrates, effusion or congestion. at 1045 Reported and signed by: Bryan Medina M.D. CC: Kb Feng MD; Lilliana Delaney MD Technologist: RT Hannah(R) Trnscrd Date/Time/By: 01/29/2019 ([id number]) : By: [email or web address] Orig Print D/T: S: 01/29/2019 ([id number]) PAGE 1 Signed Report CBC W/AUTO [id number] 10:44:00* Test Item Value Reference Range Interpretation Comments WHITE BLOOD CELL (test code = WBC) K/mm3 4.5-12.5 RED BLOOD CELL (test code = RBC) mill/mm3 4.0-5.8 HEMOGLOBIN (test code = HGB) 16.1 gram/dL 13.0-17.5 N HEMATOCRIT (test code = HCT) 48.5 % 42.0-52.0 N MEAN CELL VOLUME (test code = MCV) fL 80-98 MEAN CELL HGB (test code = MCH) picogram 27.0-33.0 MEAN CELL HGB CONCETRATION (test code = MCHC) gram/dL 33.0-36. 0 RED CELL DISTRIBUTION WIDTH (test code = RDW) % 11.6-16. 2 RED CELL DISTRIBUTION WIDTH SD (test code = RDW-SD) fL 37 .0-51.0 PLATELET COUNT (test code = PLT) K/mm3 150-450 MEAN PLATELET VOLUME (test code = MPV) fL 6.7-11.0 NEUTROPHIL % (test code = NT%) % 39.0-69.0 IMMATURE GRANULOCYTE % (test code = IG%) % 0.0-5.0 LYMPHOCYTE % (test code = LY%) % 25.0-55.0 MONOCYTE % (test code = MO%) % 0.0-10.0 EOSINOPHIL % (test code = EO%) % 0.0-5.0 BASOPHIL % (test code = BA%) % 0.0-1.0 NEUTROPHIL # (test code = NT#) K/mm3 1.8-7.7 LYMPHOCYTE # (test code = LY#) K/mm3 1.0-5.0 MONOCYTE # (test code = MO#) K/mm3 0-0.8 EOSINOPHIL # (test code = EO#) K/mm3 0.0-0.5 BASOPHIL # (test code = BA#) K/mm3 0.0-0.2
--- OUTSIDE RECORDS SUMMARY | 2020-04-15 16:22 | XMS REPORT | Continuity of Care Document ---
Author Author [facility] [employer] OBDULIA Romero [employer] Address Unknown Phone Unavailable Care Team Providers Care Pin Cleaner Name Role Phone [employer] Information Exchange Unavailable Un available Problems Problem Status Onset Date Classification Date Reported Comments Source Carotid artery disease Active Problem 04/07/2016 Lilliana Delaney Hypercholesterolemia Active Problem 04/07/2016 Lilliana Delaney Diabetes mellitus Active Problem 04/07/2016 Lilliana Delaney Equivalent angina Active Problem 04/07/2016 Lilliana Delaney CAD, Graft Active Problem 04/07/2016 Lilliana Delaney Smoker Active Diagnosis 04/07/2016 Lilliana Delaney DJD (degenerative joint disease) of knee Active Diagnosis 04/07/2016 Lilliana Delaney Subclavian artery stenosis, left Active Problem Lilliana Delaney CVA Active Problem 04/07/2016 Lilliana Delaney Atherosclerosis of [place] arteries of th e extremities with intermittent claudication Active Problem 04/07/2016 Lilliana Delaney Abnormal EKG Active Problem 04/07/2016 Lilliana Delaney Benign hypertensive heart disease Active Problem Lilliana Delaney residential current use of insulin Active Diagnosis 0 02/23/2020 Lilliana Delaney Patient unable to exercise Act taniya Diagnosis 0 02/23/2020 Lilliana Delaney Subclavian arterial stenosis A ctive Diagnosis 0 02/23/2020 Lilliana Delaney Type 2 diabetes mellitus with unspecified complication s Active Diagnosis 02/23/2020 Lilliana Delaney History of CEA (carotid endarterectomy) Active Diagnosis 02/23/2020 Lilliana Delaney Osteoarthritis of knee, unspecified Active Diagnosis 0 02/23/2020 Lilliana Delaney Nicotine dependence, unspecified, uncomplicated Active Diagnosis 02/23/2020 Lilliana Delaney Pure hypercholesterolemia, unspecified Active Diagnosis 02/23/2020 Lilliana Delaney Hypertensive heart disease without heart failure Active Diagnosis 02/23/2020 Lilliana Delaney Atherosclerosis of coronary artery bypas 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 Active Problem 02/23/2020 Lilliana Delaney Abnormal electrocardiogram [ECG] [EKG] Active Diagnosis 02/23/2020 Lilliana Delaney Occlusion and stenosis of bilateral carotid arteries Active Diagnosis 02/23/2020 Lilliana Delaney Acute mitral insufficiency Act taniya Problem 02/2020 Lilliana Delaney History of [place] (myocardial infarction) Active Problem 02/2020 Lilliana Delaney Mitral valve disorders Active Problem 02/23/2020 Lilliana Delaney Atherosclerosis of [place] artery of both lower extremities with intermittent claudication Active Diagnosis 02/23/2020 Lilliana Delaney AGRAWAL (dyspnea on exertion) Acti ve Problem 02/2020 Lilliana Delaney Chronic systolic congestive heart failure Active Problem 02/23/2020 Lilliana Delaney Abnormal cardiovascular stress test Active Problem 02/2020 Lilliana Delaney Other forms of angina pectoris Active Problem 02/2020 Lilliana Delaney Medications Medication Details Route Status Patient Instructions Ordering Provider Order Date Source Lasix 1 tablet Orally Active 40 MG Orally twice a da y (bid) Rhett 01/28/2020 Lilliana Delaney Levemir as directed Subcutaneous Active 100 UNIT/ML Subcutaneou s 20 in AM and 30 units in PM Rhett Delaney Glimepiride 1 tablet with marta kfast or the first main meal of the day Orally Active 4 MG Orally Once a day Rhett Delaney Metoprolol Tartrate 1/2 half t ablet Orally Active 25 MG Orally Twice a day Rhett Delaney Clopidogrel Bisulfate 1 tablet Orally Active 75 MG Orally Once a day Rhett Delaney Aspirin EC 1 tablet Orally Active 81 MG Orally Once a day Rhett Delaney Atorvastatin Calcium 1 tablet Orally Active 40 MG Orally Once a day Rhett Delaney Lisinopril 1 tablet Orally Active 10 MG Orally Once a day Rhett Delaney Clopidogrel Bisulfate 1 tablet Orally Active 75 MG Orally Once a day Rhett Delaney Aspirin EC 1 tablet Orally Active 81 MG Orally Once a day Rhett Delaney Glimepiride 1 tablet with marta kfast or the first main meal of the day Orally Active 4 MG Orally Once a day Davejono Delaney Metoprolol Tartrate 1/2 half t ablet Orally Active 25 MG Orally Twice a day Davejono Delaney Levemir as directed Subcutaneous Active 100 UNIT/ML Subcutaneou s 20 in AM and 30 units in PM Davejono Delaney Atorvastatin Calcium 1 tablet Orally Active 40 MG Orally Once a day Davejono Delaney Lisinopril 1 tablet Orally Active 10 MG Orally Once a day Davejono Delaney Aspir-81 1 tablet Orally Active 81 MG Orally as needed [facility] Lilliana Delaney Allergies, Adverse Reactions, Alerts Substance Category Reaction Severity Reaction type Status Date Reported Comments Source N.K.D.A. Adverse Reaction Info Not Available Adverse Reaction 11/24/2018 Lilliana Delaney Immunizations No Data Provided for This Section Results No Data Provided for This Section Pathology Reports No Data Provided for This Section Diagnostic Reports No Data Provided for This Section Consultation Notes No Data Provided for This Section Discharge Summaries No Data Provided for This Section History and Physicals No Data Provided for This Section Vital Signs Vital Sign Value Date Comments Source Weight 236 01/28/2020 [facility] [place] Height 71 0 01/28/2020 [facility] [place] Temperature Oral (F) 97.0 F 01/28/2020 [facility] [place] Heart Rate 100 01/28/2020 [facility] [place] Diastolic (mm Hg) 80 01/28/2020 [facility] [place] Systolic (mm Hg) 128 01/28/2020 [facility] [place] Weight 204 02/09/2019 [facility] [place] Height 71 0 02/09/2019 [facility] [place] Temperature Oral (F) 97.0 F 02/09/2019 [facility] [place] Heart Rate 89 02/09/2019 [facility] [place] Diastolic (mm Hg) 80 02/09/2019 [facility] [place] Systolic (mm Hg) 122 02/09/2019 [facility] [place] Weight 206 01/08/2019 [facility] [place] Height 71 0 01/08/2019 [facility] [place] Temperature Oral (F) 96.7 F 01/08/2019 [facility] [place] Heart Rate 72 01/08/2019 [facility] [place] Diastolic (mm Hg) 80 01/08/2019 [facility] [place] Systolic (mm Hg) 128 01/08/2019 [facility] [place] Weight 207 12/10/2018 [facility] Height 71 0 12/10/2018 [facility] [place] Temperature Oral (F) 96.2 F 12/10/2018 [facility] [place] Heart Rate 72 12/10/2018 [facility] [place] Diastolic (mm Hg) 80 12/10/2018 [facility] [place] Systolic (mm Hg) 146 12/10/2018 [facility] [place] Weight 210 11/24/2018 [facility] [place] Height 71 0 11/24/2018 [facility] [place] Temperature Oral (F) 96.1 F 11/24/2018 [facility] Heart Rate 72 11/24/2018 [facility] [place] Diastolic (mm Hg) 82 11/24/2018 [facility] [place] Systolic (mm Hg) 158 11/24/2018 [facility] [place] Weight 214 04/11/2015 [facility] Height 71 0 04/11/2015 [facility] [place] Temperature Oral (F) 97.9 F 04/11/2015 [facility] Heart Rate 72 04/11/2015 [facility] Diastolic (mm Hg) 70 04/11/2015 [facility] [place] Systolic (mm Hg) 134 04/11/2015 [facility] [place] Weight 215 03/23/2015 [facility] Height 71 0 03/23/2015 [facility] [place] Temperature Oral (F) 97.2 F 03/23/2015 [facility] Heart Rate 72 03/23/2015 [facility] Diastolic (mm Hg) 85 03/23/2015 [facility] [place] Systolic (mm Hg) 140 03/23/2015 [facility] [place] Weight 212 02/01/2015 [facility] Height 71 0 02/01/2015 [facility] Temperature Oral (F) 96.7 F 02/01/2015 [facility] Heart Rate 72 02/01/2015 Lilliana Delaney Diastolic (mm Hg) 65 02/01/2015 Lilliana Delaney Systolic (mm Hg) 130 02/01/2015 Lilliana Delaney Encounters Location Location Details Encounter Type Encounter Number Reason For Visit Attending Provider ADM Date DC Date Status Source [facility] [id number] 02/01/2015 02/01/2015 [facility] [id number] 02/01/2015 02/01/2015 [facility] Follow up [id number] 02/01/2015 02/01/2015 [facility] Unknown [id number] 03/23/20 15 03/23/2015 [facility] Unknown [id number] 03/23/20 15 03/23/2015 [facility] Unknown [id number] 03/23/20 15 03/23/2015 [facility] FOLLOW UP [id number] 04/11/20 15 04/11/2015 [facility] FOLLOW UP [id number] 04/11/20 15 04/11/2015 [facility] FOLLOW UP [id number] 04/11/20 15 04/11/2015 Lilliana Delaney Procedures No Data Provided for This Section Assessment and Plan No Data Provided for This Section Plan of Care No Data Provided for This Section Social History Social History Date Source Social History ElementQualifiersDate Rep orted Smoking . Status Current Smoker 6 cig/ 24 hour s Apr 12, 2015 Alcohol Use Yes. Socially Apr 12, 2015 Alcohol Screening: Yes. Did you have a drink containing alcohol in the past year? Yes , Points 4 , How often did you have a drink containing alcohol in the past year? Two to four times a month (2 points) , How many drinks did you have on a typical day when you were drinking in the past year? 3 or 4 (1 point) , How often did you have six or more drinks on one occasion in the past year? Less than monthly (1 point) Apr 12, 2015 Marital Status: . Apr 12, 2015 Do you drink alcohol? Yes. 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 Apr 12, 2015 04/12/2015 Lilliana Delaney Family History Value Date S ource QualifierDescriptionCommentDate Reported Maternal Grandmother Comment not available Apr 11, 2015 Paternal Grandmother Comment not available Apr 11, 2015 Siblings Comment not available Apr 11, 2015 Maternal Grandfather Comment not available Apr 11, 2015 Children Comment not available Apr 11, 2015 Father [place], HTN,DM, Hypercholesterolemia Apr 11, 2015 Paternal Grandfather Comment not available Apr 11, 2015 Mother Lung cancer, Hypercholesterolemia Apr 11, 2015 Other: Comment not available Apr 11, 2015 04/07/2016 Lilliana Delaney QualifierDescriptionCommentDate Reported Maternal Grandmother Comment not available Apr 11, 2015 Paternal Grandmother Comment not available Apr 11, 2015 Siblings Comment not available Apr 11, 2015 Maternal Grandfather Comment not available Apr 11, 2015 Children Comment not available Apr 11, 2015 Father [place], HTN,DM, Hypercholesterolemia Apr 11, 2015 Paternal Grandfather Comment not available Apr 11, 2015 Mother Lung cancer, Hypercholesterolemia Apr 11, 2015 Other: Comment not available Apr 11, 2015 04/07/2016 Lilliana Delaney QualifierDescriptionCommentDate Reported Maternal Grandmother Comment not available Apr 11, 2015 Paternal Grandmother Comment not available Apr 11, 2015 Siblings Comment not available Apr 11, 2015 Maternal Grandfather Comment not available Apr 11, 2015 Children Comment not available Apr 11, 2015 Father [place], HTN,DM, Hypercholesterolemia Apr 11, 2015 Paternal Grandfather Comment not available Apr 11, 2015 Mother Lung cancer, Hypercholesterolemia Apr 11, 2015 Other: Comment not available Apr 11, 2015 04/07/2016 Lilliana Delaney Advance Directives No Data Provided for This Section Functional Status No Data Provided for This Section
--- OUTSIDE RECORDS SUMMARY | 2020-04-15 16:26 | XMS REPORT | Continuity of Care Document ---
Author Author Ramone [employer] OBDULIA Romero [employer] Address Unknown Phone Unavailable Care Team Providers Care Manual Training Teacher Name Role Phone [employer] Information Exchange Unavailable Un available Problems Problem [...] Active Problem 04/07/2016 Lilliana Delaney Atherosclerosis of [place] arteries of th e extremities with intermittent claudication Active Problem 04/07/2016 Lilliana Delaney Abnormal EKG Active Problem 04/07/2016 Lilliana Delaney Benign hypertensive heart disease Active Problem Lilliana Delaney correction current use of insulin Active Diagnosis 0 [...] of coronary artery bypas s graft of [place] heart with angina pectoris Active Problem 02/23/2020 Lilliana Delaney Abnormal electrocardiogram [ECG] [EKG] Active Diagnosis 02/23/2020 Lilliana Delaney Occlusion and stenosis of bilateral carotid arteries Active Diagnosis 02/23/2020 Lilliana Delaney Acute mitral insufficiency Act taniya Problem 02/2020 Lilliana Delaney History of [place] (myocardial infarction) Active Problem 02/2020 Lilliana Delaney Mitral valve disorders Active Problem 02/23/2020 Lilliana Delaney Atherosclerosis of [place] artery of both lower extremities with intermittent [...] Active 81 MG Orally as [facility] Lilliana Delaney Allergies, Adverse Reactions, Alerts Substance [...] Value Date Comments Source Weight 236 01/28/2020 [facility] [place] Height 71 0 01/28/2020 [facility] [place] Temperature Oral (F) 97.0 F 01/28/2020 [facility] [place] Heart Rate 100 01/28/2020 [facility] [place] Diastolic (mm Hg) 80 01/28/2020 [facility] [place] Systolic (mm Hg) 128 01/28/2020 [facility] [place] Weight 204 02/09/2019 [facility] [place] Height 71 0 02/09/2019 [facility] [place] Temperature Oral (F) 97.0 F 02/09/2019 [facility] Heart Rate 89 02/09/2019 [facility] [place] Diastolic (mm Hg) 80 02/09/2019 [facility] [place] Systolic (mm Hg) 122 02/09/2019 [facility] [place] Weight 206 01/08/2019 [facility] [place] Height 71 0 01/08/2019 [facility] [...] Source [facility] [id number] 02/01/2015 02/01/2015 [facility] [id number] 02/01/2015 02/01/2015 [facility] Follow up [id number] 02/01/2015 02/01/2015 [facility] Unknown [id number] 03/23/20 15 03/23/2015 [facility] Unknown [id number] 03/23/20 15 03/23/2015 [facility] Unknown [id number] 03/23/20 15 03/23/2015 [facility] FOLLOW UP [id number] 04/11/20 15 04/11/2015 [facility] FOLLOW UP [id number] 04/11/20 15 04/11/2015 [facility] FOLLOW UP [id number] 04/11/20 15 04/11/2015 Lilliana Delaney Procedures No [...] Yes. Apr 12, 2015 Occupation: . Retired [employer] Apr 12, 2015 04/12/2015 Lilliana Delaney Family History Value Date S ource QualifierDescriptionCommentDate Reported Maternal Grandmother Comment not available Apr 11, 2015 Paternal Grandmother Comment not available Apr 11, 2015 Siblings Comment not available Apr 11, 2015 Maternal Grandfather Comment not available Apr 11, 2015 Children Comment not available Apr 11, 2015 Father [place], HTN,DM, Hypercholesterolemia Apr 11, 2015 Paternal Grandfather [...] Comment not available Apr 11, 2015 Father [place], HTN,DM, Hypercholesterolemia Apr 11, 2015 Paternal Grandfather [...] Comment not available Apr 11, 2015 Father [place], HTN,DM, Hypercholesterolemia Apr 11, 2015 Paternal Grandfather Comment not available Apr 11, 2015 Mother Lung cancer, Hypercholesterolemia Apr 11, 2015 Other: Comment not available Apr 11, 2015 04/07/2016 Lilliana Delaney Advance Directives No Data Provided for This Section Functional Status No Data Provided for This Section
--- OUTSIDE RECORDS SUMMARY | 2020-04-15 16:26 | XMS REPORT | Continuity of Care Document ---
Author Author [facility] t Organization [facility] Address [address] [place] [address] Phone Unavailable Care Team Providers Care Director Game Name Role Phone DAYANARATARACarmelita GAMAL Attphys Unavailable [...] 04/07/2016 Lilliana Delaney Problem Active 2016-04-07 02:48:23 [facility] CVA CVA Active Problem 04/07/2016 Lilliana Delaney Problem Active 2016-04-07 02:48:23 [facility] Atherosclerosis of kiana arteries of th e extremities with intermittent claudication Atherosclerosis of kiana arteries of the extremities with intermittent claudication Active Problem 04/07/2016 Lilliana Delaney Problem Active 2016-04-07 02:48:23 Raman Shirley Abnormal EKG Abno rmal EKG Active Problem 04/07/2016 Lillaina Delaney Problem Active 2016-04-07 02:48:23 [facility] Benign hypertensive heart disease Benign hypertensive heart disease Active Problem 04/07/2016 Lilliana Delaney Problem Active 2016-04-07 02:48:23 [facility] 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 Active Diagnosis 02/23/2020 Lilliana Delaney Diagnosis Active 2020-02-23 02:45:23 [facility] Patient unable to exercise Pat ient unable to exercise Active Diagnosis 02/23/2020 Lilliana Delaney Diagnosis Active 2020-02-23 02:45:23 [facility] Subclavian arterial stenosis S ubclavian arterial stenosis Active Diagnosis 02/23/2020 Lilliana Delaney Diagnosis Active 2020-02-23 02:45:23 [facility] Type 2 diabetes mellitus with unspecified complication s Type 2 diabetes mellitus with unspecified complications Active Diagnosis 02/23/2020 Lilliana Delaney Diagnosis Active 2020-02-23 02:45:2 3 [facility] History of CEA (carotid endarterectomy) History of CEA (carotid endarterectomy) Active Diagnosis 02/23/2020 Lilliana Delaney Diagnosis Active 2020-02-23 02:45:23 Gerardo Shirley Osteoarthritis of knee, unspecified Osteoarthritis of knee, unspecified Active Diagnosis 02/23/2020 Lilliana Delaney Diagnosis Active 2020-02-23 02:45:23 [facility] Nicotine dependence, unspecified, uncomplicated Nicotine dependence, unspecified, uncomplicated Active Diagnosis 02/23/2020 Lilliana Delaney Diagnosis Active 2020-02-23 02:45:23 [facility] Pure hypercholesterolemia, unspecified Pure hypercholesterolemia, unspecified Active Diagnosis 02/23/2020 Lilliana Delaney Diagnosis Active 2020-02-23 02:45:23 [facility] Hypertensive heart disease without heart failure Hypertensive heart disease without heart failure Active Diagnosis 02/23/2020 Lilliana Delaney Diagnosis Active 2020-02-23 02:45:23 [facility] 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 Active Problem 02/23/2020 Lilliana Delaney Problem Active 2020-02-23 02:45:23 [facility] Abnormal electrocardiogram [ECG] [EKG] Abnormal electrocardiogram [ECG] [EKG] Active Diagnosis 02/23/2020 Lilliana Delaney Diagnosis Active 2020-02-23 02:45:23 [facility] 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 Active Diagnosis 02/23/2020 Lilliana Delaney Diagnosis Active 2020-02-23 02:45:2 3 [facility] Acute mitral insufficiency Acu te mitral insufficiency Active Problem 02/23/2020 Lilliana Delaney Problem Active 2020-02-23 02:45:23 [facility] History of CT (myocardial infarction) History of CT (myocardial infarction) Active Problem 02/23/2020 Lilliana Delaney Problem Active 2020-02-23 02:45:23 [facility] Mitral valve disorders Mitr al valve disorders Active Problem 02/23/2020 Lilliana Delaney Problem Active 07-03-07 02:45:23 [facility] Atherosclerosis of kiana artery of both lower extremities with intermittent claudication Atherosclerosis of kiana artery of both lower extremities with intermittent claudication Active Diagnosis 02/23/2020 Lilliana Delaney Diagnosis Active 2020-02-23 02:45:23 [facility] AGRAWAL (dyspnea on exertion) AGRAWAL (dyspnea on exertion) Active Problem 02/23/2020 Lilliana Delaney Problem Active 2020-02-23 02:45:23 [facility] Chronic systolic congestive heart failure Chronic systolic congestive heart failure Active Problem 02/23/2020 Lilliana Delaney Problem Active 2020-02-23 02:45:23 [facility] Abnormal cardiovascular stress test Abnormal cardiovascular stress test Active Problem 02/23/2020 Mohamed O Jeroudi Problem Active 2020-02-23 02:45:23 Gerardo Shirley Other forms of angina pectoris Other forms of angina pectoris Active Problem 02/23/2020 Lilliana Blackwell Jeroudi Problem Active 2020-02-23 02:45:23 [facility] Allergies, Adverse Reactions, Alerts Allergy Name Allergy Type Status Severity Reaction(s) Onset Date Inacti ve Date Treating Clinician Comments Source No Known Allergies DA Active U 2020-02-16 00:00:00 [facility] N.KNika Kirk Active Info Not Available 2018-11-24 00:00:00 [facility] No Known Allergies DA Active U 2015-01-14 00:00:00 [facility] Family History Family Member Diagnosis Comments Start Date Stop Date Source Unknown Family Member Family History 2016-04-07 02:48:12 2 02:48:12 [facility] Social History Social Habit Start Date Stop Date Quantity Comments Source Smoking 2015-04-12 00:00:00 2015-04-12 00:00:00 [facility] Medications Ordered Medication Name Filled Medication Name Start Date Stop Da te Current Medication? Ordering Clinician Indication Dosage Frequency Signature (SIG) Comments Components Source Clopidogrel Bisulfate 2020-02-23 02:45:23 Yes Ahmad Jeroudi 1 tablet [facility] Aspirin EC 2020-02-23 02:45:23 Yes Ahmad Jeroudi 1 tablet [facility] Glimepiride 2020-02-23 02:45:23 Yes Ahmad Jeroudi 1 tablet with breakfast or the first main meal of the day [facility] Metoprolol Tartrate 2020-02-23 02:45:23 Yes Ahmad Jeroud i 1/2 half tablet [facility] Levemir 2020-02-23 02:45:23 Yes Ahmad Jeroudi as directed [facility] Atorvastatin Calcium 2020-02-23 02:45:23 Yes Ahmad Jeroudi 1 tablet [facility] Lisinopril 2020-02-23 02:45:23 Yes Ahmad Jeroudi 1 tablet [facility] Aspir-81 2020-02-23 02:45:23 Yes Ahmad Jeroudi 1 tablet [facility] Lasix 2020-01-28 00:00:00 Yes Ahmad Jeroudi 1 tab let [facility] Levemir 2016-04-07 02:48:23 Yes Lilliana Acostamamadoudi a s directed [facility] [place] Glimepiride 2016-04-07 02:48:23 Yes Lilliana Acostaoudi 1 tablet with breakfast or the first main meal of the day [facility] [place] Metoprolol Tartrate 2016-04-07 02:48:23 Yes Lilliana Elizondo estefany 1/2 half tablet [facility] Clopidogrel Bisulfate 2016-04-07 02:48:23 Yes Lilliana Sanchez roudi 1 tablet [facility] Aspirin EC 2016-04-07 02:48:23 Yes Lilliana Acostaoudi 1 tablet [facility] Atorvastatin Calcium 2016-04-07 02:48:23 Yes Lilliana Acosatoudi 1 tablet [facility] [place] Lisinopril 2016-04-07 02:48:23 Yes Lilliana Acostaoudi 1 tablet [facility] Vital Signs Vital Name Observation Time Observation Value Comments Source Weight 2020-01-28 18:00:00 [facility] Height 2020-01-28 18:00:00 [facility] [place] Temperature Oral (F) 2020-01-28 18:00:00 97.0 F [facility] Heart Rate 2020-01-28 18:00:00 [facility] [place] Diastolic (mm Hg) 2020-01-28 18:00:00 [facility] [place] Systolic (mm Hg) 2020-01-28 18:00:00 Raman Bowenann Weight 2019-02-09 16:00:00 [facility] Height 2019-02-09 16:00:00 [facility] [place] Temperature Oral (F) 2019-02-09 16:00:00 97.0 F [facility] [place] Heart Rate 2019-02-09 16:00:00 [facility] [place] Diastolic (mm Hg) 2019-02-09 16:00:00 [facility] [place] Systolic (mm Hg) 2019-02-09 16:00:00 Raman bubbal [place] Weight 2019-01-08 18:00:00 [facility] [place] Height 2019-01-08 18:00:00 [facility] [place] Temperature Oral (F) 2019-01-08 18:00:00 96.7 F [facility] [place] Heart Rate 2019-01-08 18:00:00 [facility] [place] Diastolic (mm Hg) 2019-01-08 18:00:00 [facility] [place] Systolic (mm Hg) 2019-01-08 18:00:00 Raman [facility] [place] Weight 2018-12-10 19:00:00 [facility] [place] Height 2018-12-10 19:00:00 [facility] [place] Temperature Oral (F) 2018-12-10 19:00:00 96.2 F [facility] [place] Heart Rate 2018-12-10 19:00:00 [facility] [place] Diastolic (mm Hg) 2018-12-10 19:00:00 [facility] [place] Systolic (mm Hg) 2018-12-10 19:00:00 Raman [facility] [place] Weight 2018-11-24 20:30:00 [facility] [place] Height 2018-11-24 20:30:00 [facility] [place] Temperature Oral (F) 2018-11-24 20:30:00 96.1 F [facility] [place] Heart Rate 2018-11-24 20:30:00 [facility] [place] Diastolic (mm Hg) 2018-11-24 20:30:00 [facility] [place] Systolic (mm Hg) 2018-11-24 20:30:00 Raman [facility] [place] Weight 2015-04-11 20:00:00 [facility] [place] Height 2015-04-11 20:00:00 [facility] [place] Temperature Oral (F) 2015-04-11 20:00:00 97.9 F [facility] [place] Heart Rate 2015-04-11 20:00:00 [facility] [place] Diastolic (mm Hg) 2015-04-11 20:00:00 [facility] [place] Systolic (mm Hg) 2015-04-11 20:00:00 Raman [facility] [place] Weight 2015-03-23 19:00:00 [facility] [place] Height 2015-03-23 19:00:00 [facility] [place] Temperature Oral (F) 2015-03-23 19:00:00 97.2 F [facility] [place] Heart Rate 2015-03-23 19:00:00 [facility] [place] Diastolic (mm Hg) 2015-03-23 19:00:00 [facility] [place] Systolic (mm Hg) 2015-03-23 19:00:00 Rmaan [facility] [place] Weight 2015-02-01 19:30:00 [facility] [place] Height 2015-02-01 19:30:00 [facility] [place] Temperature Oral (F) 2015-02-01 19:30:00 96.7 F [facility] [place] Heart Rate 2015-02-01 19:30:00 [facility] [place] Diastolic (mm Hg) 2015-02-01 19:30:00 [facility] [place] Systolic (mm Hg) 2015-02-01 19:30:00 Raman [facility] [place] Procedures This patient has no known procedures. Encounters Start Date/Time End Date/Time Encounter Type Admission Type [facility] Care Department Encounter ID Source 2020-01-28 13:00:00 2020-01-28 13:00:00 Outpatient Lilliana Delaney [place] [id number] [employer] 2019-02-09 11:00:00 2019-02-09 11:00:00 Outpatient Lilliana Delaney MD [place] [id number] [employer] 2019-01-08 13:00:00 2019-01-08 13:00:00 Outpatient Lilliana Delaney MD [place] [id number] [employer] 2018-12-10 14:00:00 2018-12-10 14:00:00 Outpatient Lilliana Delaney MD [place] [id number] [employer] 2018-11-24 15:30:00 2018-11-24 15:30:00 Outpatient Lilliana Delaney MD [place] [id number] [employer] 2015-04-11 15:00:00 2015-04-11 15:00:00 [place] [id number] [employer] 2015-03-23 14:00:00 2015-03-23 14:00:00 [place] [id number] [employer] 2015-02-01 14:30:00 2015-02-01 14:30:00 [place] [id number] [employer] Results Test Description Test Time Test Comments Results Result Comments Source CT ABDOMEN/PELVIS W 2020-04-15 14:13:00 [place] [address] Patient Name: OBDULIA GARCIA MR #: [id number] : 1950 Age/[facility]: 69[id number] Req #: [id number] [facility] Physician: Ordered by: GAMAL JC DO Report #: [id number] Location: ER Room/Bed: Procedure: [id number] CT/CT ABDOMEN/PELVIS W Exam Date: 04/15/20 Exam [...] CA) 9.7 mg/dL 8.5-10.1 N BASIC METABOLIC [id number] 08:09:00* Test Item Value Reference Range Interpretation [...] code = CA) 9.7 mg/dL 8.5-10.1 N [id number] 07:58:00* Test Item Value Reference Range Interpretation Comments GLUBED (test code = GLUBED) 121 mg/dL 74-106 H Performed by certified scale tank operator at [facility] [id number] 06:31:00* Test Item Value Reference Range Interpretation Comments GLUBED (test code = GLUBED) 65 mg/dL 74-106 L Performed by certified scale tank operator at [facility] COMPREHENSIVE METABOLIC [id number] 05:10:00* Test Item Value Reference Range Interpretation [...] due to change in reagent. COMPREHENSIVE METABOLIC [id number] 05:01:00* Test Item Value Reference Range Interpretation [...] code = ALKP) IUnit/L 45-117 CBC W/AUTO [id number] 04:40:00* Test Item Value Reference Range Interpretation [...] code = NRBC#) 0.00 K/mm3 0.0-0.1 N [id number] 20:15:00* Test Item Value Reference Range Interpretation Comments GLUBED (test code = GLUBED) 159 mg/dL 74-106 H Performed by certified scale tank operator at [facility] [id number] 17:32:00* Test Item Value Reference Range Interpretation Comments GLUBED (test code = GLUBED) 120 mg/dL 74-106 H Performed by certified scale tank operator at [facility] [id number] 12:43:00* Test Item Value Reference Range Interpretation Comments GLUBED (test code = GLUBED) 171 mg/dL 74-106 H Performed by certified scale tank operator at [facility] [id number] 08:29:00* Test Item Value Reference Range Interpretation Comments GLUBED (test code = GLUBED) 85 mg/dL 74-106 N Performed by certified scale tank operator at [facility] COMPREHENSIVE METABOLIC [id number] 05:57:00* Test Item Value Reference Range Interpretation [...] due to change in reagent. COMPREHENSIVE METABOLIC [id number] 04:43:00* Test Item Value Reference Range Interpretation [...] TOTAL (test code = ALKP) IUnit/L 45-117 [id number] 19:59:00* Test Item Value Reference Range Interpretation Comments GLUBED (test code = GLUBED) 162 mg/dL 74-106 H Performed by certified scale tank operator at [facility] [id number] 17:02:00* Test Item Value Reference Range Interpretation Comments GLUBED (test code = GLUBED) 168 mg/dL 74-106 H Performed by certified scale tank operator at [facility] [id number] 12:11:00* Test Item Value Reference Range Interpretation Comments GLUBED (test code = GLUBED) 120 mg/dL 74-106 H Performed by certified scale tank operator at [facility] [id number] 07:43:00* Test Item Value Reference Range Interpretation Comments GLUBED (test code = GLUBED) 85 mg/dL 74-106 N Performed by certified scale tank operator at [facility] COMPREHENSIVE METABOLIC [id number] 05:25:00* Test Item Value Reference Range Interpretation [...] due to change in reagent. COMPREHENSIVE METABOLIC [id number] 05:09:00* Test Item Value Reference Range Interpretation [...] TOTAL (test code = ALKP) IUnit/L 45-117 [id number] 19:59:00* Test Item Value Reference Range Interpretation Comments GLUBED (test code = GLUBED) 209 mg/dL 74-106 H Performed by certified scale tank operator at [facility] [id number] 16:00:00* Test Item Value Reference Range Interpretation Comments GLUBED (test code = GLUBED) 150 mg/dL 74-106 H Performed by certified scale tank operator at [facility] [id number] 11:53:00* Test Item Value Reference Range Interpretation Comments GLUBED (test code = GLUBED) 115 mg/dL 74-106 H Performed by certified scale tank operator at [facility] [id number] 07:47:00* Test Item Value Reference Range Interpretation Comments GLUBED (test code = GLUBED) 77 mg/dL 74-106 N Performed by certified scale tank operator at [facility] COMPREHENSIVE METABOLIC [id number] 07:05:00* Test Item Value Reference Range Interpretation [...] due to change in reagent. COMPREHENSIVE METABOLIC [id number] 07:00:00* Test Item Value Reference Range Interpretation [...] TOTAL (test code = ALKP) IUnit/L 45-117 [id number] 20:06:00* Test Item Value Reference Range Interpretation Comments GLUBED (test code = GLUBED) 175 mg/dL 74-106 H Performed by certified scale tank operator at [facility] [id number] 15:22:00* Test Item Value Reference Range Interpretation Comments GLUBED (test code = GLUBED) 124 mg/dL 74-106 H Performed by certified scale tank operator at [facility] [id number] 11:39:00* Test Item Value Reference Range Interpretation Comments GLUBED (test code = GLUBED) 129 mg/dL 74-106 H Performed by certified scale tank operator at [facility] [id number] 07:40:00* Test Item Value Reference Range Interpretation Comments GLUBED (test code = GLUBED) 101 mg/dL 74-106 N Performed by certified scale tank operator at [facility] COMPREHENSIVE METABOLIC [id number] 07:36:00* Test Item Value Reference Range Interpretation [...] due to change in reagent. BASIC METABOLIC [id number] 07:28:00* Test Item Value Reference Range Interpretation [...] CA) 8.9 mg/dL 8.5-10.1 N COMPREHENSIVE METABOLIC [id number] 07:24:00* Test Item Value Reference Range Interpretation [...] code = ALKP) IUnit/L 45-117 BASIC METABOLIC [id number] 07:22:00* Test Item Value Reference Range Interpretation [...] code = CA) mg/dL 8.5-10.1 CBC W/AUTO [id number] 07:21:00* Test Item Value Reference Range Interpretation [...] DIFF REQUIRED (test code = MDIFF) NO [id number] 20:17:00* Test Item Value Reference Range Interpretation Comments GLUBED (test code = GLUBED) 170 mg/dL 74-106 H Performed by certified scale tank operator at [facility] [id number] 16:46:00* Test Item Value Reference Range Interpretation Comments GLUBED (test code = GLUBED) 146 mg/dL 74-106 H Performed by certified scale tank operator at [facility] [id number] 11:35:00* Test Item Value Reference Range Interpretation Comments GLUBED (test code = GLUBED) 161 mg/dL 74-106 H Performed by certified scale tank operator at [facility] [id number] 08:09:00* Test Item Value Reference Range Interpretation Comments GLUBED (test code = GLUBED) 112 mg/dL 74-106 H Performed by certified scale tank operator at [facility] [id number] 02:32:00* Test Item Value Reference Range Interpretation Comments GLUBED (test code = GLUBED) 99 mg/dL 74-106 N Performed by certified scale tank operator at [facility] [id number] 22:36:00* Test Item Value Reference Range Interpretation Comments TROPONIN-I (test code = TROPI) 0.054 ng/mL 0-0.045 HH PREVIOUSLY CALLED COMMENTS TO FRONT DESK AGENT: COLLECT 3 HOURS AFTER PREVIOUS [id number] 21:08:00* Test Item Value Reference Range Interpretation Comments GLUBED (test code = GLUBED) 126 mg/dL 74-106 H [facility]~ [id number] 17:04:00* Test Item Value Reference Range Interpretation Comments GLUBED (test code = GLUBED) 80 mg/dL 74-106 N Performed by certified scale tank operator at [facility] [id number] 17:04:00* Test Item Value Reference Range Interpretation Comments GLUBED (test code = GLUBED) 80 mg/dL 74-106 N Performed by certified scale tank operator at [facility] B-TYPE NATRIURETIC [id number] 11:32:00* Test Item Value Reference Range Interpretation Comments B-TYPE NATRIURETIC PEPTIDE (test code = BNP) 2460.39 pgram/mL 0-100 H BASIC METABOLIC [id number] 11:21:00* Test Item Value Reference Range Interpretation [...] CA) 8.9 mg/dL 8.5-10.1 N HEPATIC FUNCTION [id number] 11:21:00* Test Item Value Reference Range Interpretation [...] reference range due to change in reagent. [id number] 11:21:00* Test Item Value Reference Range Interpretation Comments LIPASE (test code = LIP) 97 U/L 73.0-393.0 N [id number] 11:21:00* Test Item Value Reference Range Interpretation Comments TROPONIN-I (test code = TROPI) 0.061 ng/mL 0-0.045 HH Results called to [id number] by V.[email or web address] 02/16/20 1120Critical results verified and read back by Nurse? Y BASIC METABOLIC [id number] 11:11:00* Test Item Value Reference Range Interpretation [...] code = CA) mg/dL 8.5-10.1 HEPATIC FUNCTION [id number] 11:11:00* Test Item Value Reference Range Interpretation [...] TOTAL (test code = ALKP) IUnit/L 45-117 [id number] 11:11:00* Test Item Value Reference Range Interpretation Comments LIPASE (test code = LIP) U/L 73.0-393.0 [id number] 11:11:00* Test Item Value Reference Range Interpretation Comments TROPONIN-I (test code = TROPI) ng/mL 0-0.045 PROTHROMBIN [id number] 11:06:00* Test Item Value Reference Range Interpretation [...] (2.5-3.5) IS PATIENT ON ANTICOAGULANTS? NTHROMBOPLASTIN TIME [id number] 11:06:00* Test Item Value Reference Range Interpretation Comments THROMBOPLASTIN TIME PARTIAL (test code = PTT) 27.8 seconds 23.0-37. 0 N IS PATIENT ON ANTICOAGULANTS? NURINALYSIS [id number] 10:55:00* Test Item Value Reference Range Interpretation [...] #/LPF FEW Urine Source? Clean CatchCBC W/O [id number] 10:50:00* Test Item Value Reference Range Interpretation [...] fL 6.7-11.0 N - XR CHEST 1 [id number] 10:49:00 FAX: Kb Villarreal MD [phone] Friona: St: PRE FAX: Natty Harris DO Name: OBDULIA GARCIA [facility] : 1950 Age/S: 69/M [address] [facility] Unit #: [id number] Loc: [facility] JANNY [address] Phys: Natty Harris DO Acct: [id number] Dis Date: Status: PRE ER PHONE #: [phone] Exam Date: 02/16/2020 1043 FAX #: [phone] Reason: chf EXAMS: CPT CODE: [id number] XR CHEST 1 V 74218 HISTORY: CHF. COMPARISON: January 29, 2019. Location: [facility]. Brachiocephalic stent noted on the left side. Interstitial infiltrates or edema. Trace left effusion. Dependent changes. Cardiomegaly. IMPRESSION: Mild interstitial e elisabet or infiltrate. Electronically Signed by Kamala Medina on at 1049 Reported and signed by: Maia Alcala CC: Kb Feng MD; Natty Harris DO Technologist: Mya Cisneros(Pavan) Ene [email or web address] Date/Time/By: 02/16/2020 (3716) : By: [email or web address] Orig Print D/T: S: 02/16/2020 (3808) PAGE 1 Sign ed Report COMPREHENSIVE METABOLIC [id number] 06:39:00* Test Item Value Reference Range Interpretation [...] due to change in reagent. COMPREHENSIVE METABOLIC [id number] 06:36:00* Test Item Value Reference Range Interpretation [...] TOTAL (test code = ALKP) IUnit/L 45-117 [id number] 06:20:00* Test Item Value Reference Range Interpretation Comments GLUBED (test code = GLUBED) 150 mg/dL 74-106 H Performed by certified scale tank operator at [facility] CBC W/AUTO [id number] 05:54:00* Test Item Value Reference Range Interpretation [...] code = NRBC#) 0.00 K/mm3 0.0-0.1 N [id number] 22:09:00* Test Item Value Reference Range Interpretation Comments GLUBED (test code = GLUBED) 339 mg/dL 74-106 H Performed by certified scale tank operator at [facility] COAGULATION TIME [id number] 10:37:00* Test Item Value Reference Range Interpretation Comments COAGULATION TIME ACTIVATED (test code = ACT) 147 seconds 62.8-88.0 H [id number] 09:03:00* Test Item Value Reference Range Interpretation Comments GLUBED (test code = GLUBED) 197 mg/dL 74-106 H Performed by certified scale tank operator at [facility] COMPREHENSIVE METABOLIC [id number] 10:46:00* Test Item Value Reference Range Interpretation [...] result is a direct measurement.========= COMPREHENSIVE METABOLIC [id number] 10:40:00* Test Item Value Reference Range Interpretation [...] code = LDL) mg/dL 100-129 CBC W/AUTO [id number] 10:15:00* Test Item Value Reference Range Interpretation [...] (test code = MDIFF) NO CBC W/AUTO [id number] 10:06:00* Test Item Value Reference Range Interpretation [...] code = BA#) K/mm3 0.0-0.2 COAGULATION TIME [id number] 14:10:00* Test Item Value Reference Range Interpretation Comments COAGULATION TIME ACTIVATED (test code = ACT) 124 seconds 62.8-88.0 H [id number] 11:53:00* Test Item Value Reference Range Interpretation Comments GLUBED (test code = GLUBED) 208 mg/dL 74-106 H Performed by certified scale tank operator at [facility] BASIC METABOLIC [id number] 05:25:00* Test Item Value Reference Range Interpretation [...] code = CA) mg/dL 8.5-10.1 BASIC METABOLIC [id number] 05:25:00* Test Item Value Reference Range Interpretation [...] code = CA) 8.0 mg/dL 8.5-10.1 L [id number] 05:17:00* Test Item Value Reference Range Interpretation Comments GLUBED (test code = GLUBED) 165 mg/dL 74-106 H Performed by certified scale tank operator at [facility] CBC W/AUTO [id number] 04:58:00* Test Item Value Reference Range Interpretation [...] NRBC#) 0.00 K/mm3 0.0-0.1 N CBC W/AUTO [id number] 04:52:00* Test Item Value Reference Range Interpretation [...] code = BA#) K/mm3 0.0-0.2 COAGULATION TIME [id number] 23:16:00* Test Item Value Reference Range Interpretation Comments COAGULATION TIME ACTIVATED (test code = ACT) 197 seconds 62.8-88.0 H [id number] 21:21:00* Test Item Value Reference Range Interpretation Comments GLUBED (test code = GLUBED) 184 mg/dL 74-106 H Performed by certified scale tank operator at [facility] [id number] 15:59:00* Test Item Value Reference Range Interpretation Comments GLUBED (test code = GLUBED) 266 mg/dL 74-106 H Performed by certified scale tank operator at [facility] [id number] 11:28:00* Test Item Value Reference Range Interpretation Comments GLUBED (test code = GLUBED) 191 mg/dL 74-106 H Performed by certified scale tank operator at [facility] [id number] 07:58:00* Test Item Value Reference Range Interpretation Comments GLUBED (test code = GLUBED) 232 mg/dL 74-106 H Performed by certified scale tank operator at [facility] COMPREHENSIVE METABOLIC [id number] 11:54:00* Test Item Value Reference Range Interpretation [...] result is a direct measurement.========= THYROID STIMULATING [id number] 11:54:00* Test Item Value Reference Range Interpretation Comments THYROID STIMULATING HORMONE (test code = TSH) 1.120 uIU/mL 0.36-3.7 4 N TSH REFERENCE RANGES: EUTHYROID: 0.35 - 4.3 mIU/mL HYPO : > 5.5 mIU/mL HYPER : < 0.35 mIU/mL COMPREHENSIVE METABOLIC [id number] 11:40:00* Test Item Value Reference Range Interpretation [...] code = LDL) mg/dL 100-129 THYROID STIMULATING [id number] 11:40:00* Test Item Value Reference Range Interpretation Comments THYROID STIMULATING HORMONE (test code = TSH) uIU/mL 0.36-3.7 4 [id number] 11:06:00* Test Item Value Reference Range Interpretation Comments GLYCOSYLATED HEMOGLOBIN (HA1C) (test code = GLYHGB) 10.8 % HbA1 4. 8-6.0 H ESTIMATED AVERAGE GLUCOSE (test code = EAG) 263 MG/DL CBC W/AUTO [id number] 10:48:00* Test Item Value Reference Range Interpretation [...] = MDIFF) NO - XR CHEST 2 [id number] 10:45:00 FAX: Kb Villarreal MD [phone] Friona: O St: PRE FAX: Lilliana Ruth [phone] Name: OBDULIA GARCIA [facility] : 1950 Age/S: 68/M [address] [facility] Unit #: [id number] Loc: [place] [address] Phys: Lilliana Delaney MD Acct: [id number] Dis Date: Status: PRE SDC PHONE #: [phone] Exam Date: 01/29/2019 1045 FAX #: [phone] Reason: PRE OP EXAMS: CPT CODE: [id number] XR CHEST 2 V 15716 HISTORY: Preop. COMPARISON chest x-ray from November [...] MD Technologist: RT Hannah(R) Trnscrd Date/Time/By: 01/29/2019 (4316) : By: [email or web address] Orig Print D/T: S: 01/29/2019 (5199) PAGE 1 Signed Report CBC W/AUTO [id number] 10:44:00* Test Item Value Reference Range Interpretation [...]
[2020-04-15 17:31] VITALS: BP 119/74
[2020-04-15 18:00] VITALS: BP 119/74
[2020-04-15] MEDS ORDERED: LEVEMIR FL100 UNIT/1 SC (18:05)
[2020-04-15 18:06] VITALS: BP 119/74
--- NOTE | 2020-04-15 18:20 | NUR ---
PATIENT ARRIVED ON THE UNIT AT 1720 PER WHEELCHAIR FROM THE ER. PATIENT IS AWAKE, ALERT, AND IN STABLE CONDITION WITH NO S/S OF RESPIRATORY DISTRESS. PATIENT DENIES PAIN AT THIS TIME AND STATES PAIN OCCURS UPON TOUCHING HIS RIGHT LOWER ABD. JAUNDICE NOTED TO BILATERAL SCLERAS AND SKIN AREA. SKINS INTACT. EDEMA NOTED TO BILATERAL LOWER EXTREMITIES 2+. ABD IS DISTENDED AND TENDER TO RIGHT SIDE/LOWER QUADRANT. TELEMETRY #17 APPLIED. CALL LIGHT IS WITHIN REACH, PATIENT INSTRUCTED TO CALL FOR ASSISTANCE NEEDED.
--- NOTE | 2020-04-15 18:36 | NUR ---
CALL PLACED OUT TO DR. SONG, BUT WAS INFORMED DR. KAPLAN IS COVERING AT THIS TIME, REGARDING SLIDING SCALE ORDER AND NPO STATUS. AWAITING CALLBACK.
--- NOTE | 2020-04-15 19:02 | NUR ---
PATIENT IS IN STABLE CONDITION WITH NO S/S OF RESPIRATORY DISTRESS. NO PAIN VOICED. PATIENT STATES HE IS HUNGRY AT THIS TIME AND WAS INFORMED BY RN THAT A CALL HAS BEEN PLACED OUT TO THE ATTENDING PHYSICIAN. AWAITING CALLBACK. TELEMETRY APPLIED. CALL LIGHT IS WITHIN REACH, PATIENT INSTRUCTED TO CALL FOR ASSISTANCE NEEDED. REPORT GIVEN TO ONCOMING NURSE.
--- NOTE | 2020-04-15 19:57 | NUR ---
CALLED MD KAPLAN FOR ORDERS. LEFT VOICEMAIL. AWAITING CALL BACK.
[2020-04-15 20:00] VITALS: BP 101/63
--- NOTE | 2020-04-15 20:11 | NUR ---
SPOKE TO MD KAPLAN. NEW ORDERS RECEIVED.
[2020-04-15] MEDS ORDERED: DEXTROSE 50% SYRINGE 50 ML IV PRN (20:15)
[2020-04-15] MEDS ORDERED: HYDRALAZINE HCL 10 MG TAB PO PRN (20:15)
[2020-04-15 20:36] VITALS: BP 101/63
[2020-04-15] MEDS: INSULIN LISPRO 100 UNIT/1 ML 3ML VIAL SQ SCH (21:00)
[2020-04-15] MEDS ORDERED: FUROSEMIDE40 MG PO (21:54)
[2020-04-16] VITALS (8 sets, daily range): BP systolic 105–149; BP diastolic 54–99
[2020-04-16 06:08] LABS: BASOPHILS # (AUTO) 0.1 (0.0-0.1); BASOPHILS % 1.2 % (0.0-1.0); EOSINOPHILS # (AUTO) 0.6 (0.0-0.4); EOSINOPHILS % 8.4 % (0.0-6.0); HEMATOCRIT 33.7 % (38.2-49.6); HEMOGLOBIN 10.6 g/dL (14.0-18.0); LYMPHOCYTES # (AUTO) 0.6 (1.0-3.2); LYMPHOCYTES % 9.8 % (18.0-39.1); MEAN CORPUSCULAR HEMOGLOBIN 28.9 pg (28-32); MEAN CORPUSCULAR HGB CONC 31.5 g/dL (31-35); MEAN CORPUSCULAR VOLUME 91.8 fL (81-99); MONOCYTES # (AUTO) 0.8 (0.2-0.8); MONOCYTES % 11.4 % (4.4-11.3); NEUTROPHILS # (AUTO) 4.5 (2.1-6.9); NEUTROPHILS % 68.9 % (38.7-80.0); PLATELET COUNT 230 x10e3/uL (140-360); RED BLOOD COUNT 3.67 x10e6/uL (4.3-5.7); RED CELL DISTRIBUTION WIDTH 17.9 % (11.7-14.4)
[2020-04-16 06:30] LABS: ALBUMIN 2.7 g/dL (3.5-5.0); ALBUMIN/GLOBULIN RATIO 0.8 (0.8-2.0); ANION GAP 16.2 mmol/L (8-16); CALCIUM 8.4 mg/dL (8.4-10.2); CREATININE, SERUM 1.65 mg/dL (0.72-1.25); POTASSIUM 4.2 mmol/L (3.5-5.1)
--- NOTE | 2020-04-16 07:05 | NUR ---
REPORT GIVEN TO DAYSHIFT NURSE. ALERT AND RESTING IN BED. NO SIGNS IV INFILTRATION. BED LOCKED AND IN LOW POSITION. CALL LIGHT WITHIN REACH. BED ALARM ACTIVATED.
[2020-04-16] MEDS: INSULIN LISPRO 100 UNIT/1 ML 3ML VIAL SQ SCH ×4 (07:30→20:55)
[2020-04-16] MEDS ORDERED: ACETAMINOPHEN 325 MG TAB PO PRN (11:45)
[2020-04-16] MEDS: PIPER-TAZ 3.375 GM 50 ML IV SCH ×3 (12:25→23:45)
[2020-04-16] MEDS ORDERED: SODIUM CHLORIDE 0.9% 250ML 250 ML ONE (12:35)
[2020-04-16 13:03] LABS: FERRITIN 278.2 ng/mL (21.81-274.66)
--- NOTE | 2020-04-16 14:44 | History and Physical ---
HISTORY OF PRESENT ILLNESS: The patient is a 69-year-old male, who has according to him no past medical history except for coronary artery bypass grafting, came here sent by Dr. Teto Feng due to right upper quadrant abdominal pain. The patient is very argumentative and disrespectful during the interview. REVIEW OF SYSTEMS: CARDIOVASCULAR: No chest pain or palpitation. RESPIRATORY: No shortness of breath. No cough. GASTROINTESTINAL: No nausea or vomiting. No diarrhea. He complains of right upper quadrant pain, which is a lot better than when he came. GENITOURINARY: No frequency or dysuria. ALLERGIES: HE SAID HE IS NOT ALLERGIC TO ANYTHING. He says he drinks occasionally and he is a smoker. PAST MEDICAL HISTORY: He said that he had coronary artery bypass graft in the past. He does not remember he had a stroke or not. PHYSICAL EXAMINATION: VITAL SIGNS: Blood pressure 113/68, temperature 97.7, heart rate 85 per minute, respiratory rate 22 per minute, oxygen saturation 97%. HEART: Showed regular rhythm. Normal S1, S2 sound. LUNGS: Clear bilaterally. ABDOMEN: Soft, nontender. No distention. No visceromegaly. EXTREMITIES: Show no edema. LABORATORY DATA: On the CBC; white blood count 8.56, hemoglobin 10.6, hematocrit 33.7, and platelet count 230,000. On the BMP; sodium 139, potassium 4.2, chloride 101, CO2 26, BUN 19, creatinine 1.65, GFR 41, glucose 88, lactic acid 1.9, calcium 8.4, total bilirubin 1.6. AST 12, ALT 12, alkaline phosphatase 69, troponin 0.058, albumin 2.7, total protein is 6.2, globulin 3.5, lipase is 23. Urinalysis is essentially unremarkable except for ketones and some hyaline casts. Serology; coronavirus test is done, report is pending. On the CT of the abdomen showed moderate volume of abdominal pelvic ascites. Stable micronodular contour noted on the liver, which can be seen in the setting of hepatic dysfunction, reflux of contrast material is also noted within the hepatic veins, which is nonspecific, probably can be seen in setting of right-sided heart dysfunction and coronary artery disease. FINAL IMPRESSION: 1. Abdominal pain. 2. Cirrhosis. 3. Ascites. 4. Coronary artery disease, status post coronary artery bypass grafting. 5. Elevated liver function tests. PLAN OF TREATMENT: The patient was started on Zosyn 3.375 mg IV q.6 hours for concerns about sepsis. Blood culture still pending. We will monitor his blood sugar before meals and at bedtime. Continue q.4 hours as needed for hypertension. The patient does not know what medication he takes for high blood pressure, morphine 4 mg IV as needed for severe pain has been given to the patient, Zofran 4 mg IV one time has been given also. We are going to put the patient on Tylenol 325 mg every 4 hours as needed for pain. The patient right now claimed that he does not have any severe pain. from the Gastroenterology point of view, iron, TIBC, ferritin, ceruloplasmin level, hepatitis profile, antinuclear antibody have been ordered part of the workup for elevated total bilirubin. from the Gastroenterology point of view a right upper quadrant abdominal ultrasound has been ordered and Dr. Arce has been consulted for Infectious Disease point of view. Blood cultures are still pending. The patient has no fever, but apparently the lactic acid was high when he came to the hospital. The patient is not very cooperative questionnaire and getting upset during the questionnaire. MD PALOMA Molina/LAKHWINDER /[id number]
--- NOTE | 2020-04-16 16:53 | NUR ---
infectious disease consultation Reason for consultation right upper quadrant abdominal pain The patient who is very pleasant 69-year-old male comes in with right-sided upper quadrant pain was severe enough that he had come to the emergency room but he is currently have no pain whatsoever there is no nausea no vomiting no diarrhea at the present time he still have some right upper quadrant discomfort The patient is a 69-year-old male, who has according to him no past medical history except for coronary artery bypass grafting, came here sent by Dr. Teto Feng due to right upper quadrant abdominal pain. The patient is very argumentative and disrespectful during the interview. REVIEW OF SYSTEMS: CARDIOVASCULAR: No chest pain or palpitation. RESPIRATORY: No shortness of breath. No cough. GASTROINTESTINAL: No nausea or vomiting. No diarrhea. He complains of right upper quadrant pain, which is a lot better than when he came. GENITOURINARY: No frequency or dysuria. ALLERGIES: HE SAID HE IS NOT ALLERGIC TO ANYTHING. He says he drinks occasionally and he is a smoker. PAST MEDICAL HISTORY: He said that he had coronary artery bypass graft in the past. He does not remember he had a stroke or not. PHYSICAL EXAMINATION:Is currently alert oriented does not seem to be in acute distress vital stable currently afebrile VITAL SIGNS: Blood pressure 113/68, temperature 97.7, heart rate 85 per minute, respiratory rate 22 per minute, oxygen saturation 97%. HEART: Showed regular rhythm. Normal S1, S2 sound. LUNGS: Clear bilaterally. ABDOMEN: Soft, nontender. No distention. No visceromegaly. he does have right upper quadrant discomfort EXTREMITIES: Show no edema. LABORATORY DATA: On the CBC; white blood count 8.56, hemoglobin 10.6, hematocrit 33.7, and platelet count 230,000. On the BMP; sodium 139, potassium 4.2, chloride 101, CO2 26, BUN 19, creatinine 1.65, GFR 41, glucose 88, lactic acid 1.9, calcium 8.4, total bilirubin 1.6. AST 12, ALT 12, alkaline phosphatase 69, troponin 0.058, albumin 2.7, total protein is 6.2, globulin 3.5, lipase is 23. Urinalysis is essentially unremarkable except for ketones and some hyaline casts. Serology; coronavirus test is done, report is pending. On the CT of the abdomen showed moderate volume of abdominal pelvic ascites. Stable micronodular contour noted on the liver, which can be seen in the setting of hepatic dysfunction, reflux of contrast material is also noted within the hepatic veins, which is nonspecific, probably can be seen in setting of right-sided heart dysfunction and coronary artery disease. FINAL IMPRESSION: 1. Abdominal pain. concern about cholelithiasis so far workup is negative we will discuss with surgery continue with Destiny discussed with the patient 2. Cirrhosis. 3. Ascites. 4. Coronary artery disease, status post coronary artery bypass grafting. 5. Elevated liver function tests.I think is due to his liver cirrhosis recheck in the morning Agree with Destiny for now
--- NOTE | 2020-04-16 20:30 | NUR ---
Dr.J Rivers has seen the patient.recommended GI.consults.
[2020-04-17] VITALS (8 sets, daily range): BP systolic 99–123; BP diastolic 50–70
--- NOTE | 2020-04-17 00:32 | NUR ---
Aaox3.no resp.distress.no pain voiced.bed alarm on.call light within reach.instructed to call for assistance as needed.pt denied any needs.
[2020-04-17] MEDS: PIPER-TAZ 3.375 GM 50 ML IV SCH ×3 (05:54→18:18)
[2020-04-17 06:39] LABS: ALBUMIN 2.6 g/dL (3.5-5.0); BILIRUBIN,DIRECT 0.9 mg/dL (0.0-0.5)
--- NOTE | 2020-04-17 07:11 | NUR ---
Bed side shift report given to oncoming rn.stable condition.
--- NOTE | 2020-04-17 07:12 | NUR ---
bedside shift report received from PM nurse. pt in stable condition.
[2020-04-17] MEDS: INSULIN LISPRO 100 UNIT/1 ML 3ML VIAL SQ SCH ×4 (07:30→20:28)
--- NOTE | 2020-04-17 12:51 | NUR ---
paged Dr. Enzo Feng for new consult; awaiting callback.
--- NOTE | 2020-04-17 13:12 | Progress Note ---
DATE: 04/17/2020 INTERNAL MEDICINE PROGRESS NOTE: SUBJECTIVE: The patient is a little bit confused today. Keeps asking same questions over and over. OBJECTIVE: VITAL SIGNS: Blood pressure 123/70, temperature 37.9, heart rate 87 per minute, respiratory rate is 18 per minute, oxygen saturation 93%. ABDOMEN: Soft. EXTREMITIES: Show no evidence of edema. NEUROLOGIC: No motor deficits. LABORATORY DATA: On the blood work; we have CBC; white blood count 6.56, hemoglobin 10.6, hematocrit 33.7, and platelet count 230,000, blood sugar 97. AST 10, ALT 10. We are waiting for the final report on the hepatitis profile, antinuclear antibody, ceruloplasmin level, antimitochondrial antibodies. FINAL IMPRESSION: 1. Atypical abdominal pain, which has resolved. 2. Possible cirrhosis of the liver. 3. History of coronary artery disease. PLAN OF TREATMENT: We are going to continue current medication regimen. We are going to be waiting for Dr. Enzo Feng to see the patient due to the cirrhosis of the liver. He has been empirically started on Zosyn. Blood culture negative. Continue to monitor blood sugar before meals and at bedtime. Continue pain control. MD PALOMA Molina/LAKHWINDER /[id number]
--- NOTE | 2020-04-17 15:07 | Diagnostic Imaging Report ---
EXAM: Liver Ultrasound INDICATION: Cirrhosis COMPARISON: CT abdomen and pelvis on 04/15/2020. TECHNIQUE: Transverse and longitudinal images of the liver were obtained. FINDINGS: Liver: Size: 15.4 cm in the right midclavicular line Diffusely echogenic with nodular borders. Gallbladder: Normal gallbladder with no stone or sludge. Gallbladder wall is slightly thickened measuring 0.4 cm, likely due to portal hypertension with ascites. Bile Ducts: Intrahepatic Ducts: No dilatation Extrahepatic Ducts: Limited Common bile duct has normal caliber measuring 0.3 cm. Main portal vein measures 1.0 cm with hepatopedal flow. The right kidney measures 4.1 x 5.3 x 6.0 cm. The pancreas is not visualized due to obscuration from overlying bowel gas. The abdominal aorta and inferior vena cava also obscured by bowel gas and not visualized. There is mild to moderate ascites. IMPRESSION: 1. Cirrhotic liver with mild to moderate ascites. 2. Slightly thickened gallbladder wall likely due to portal hypertension with ascites. No evidence of cholelithiasis. Signed by: Ericka Sepulveda MD on 04/17/2020 3:04 PM
--- NOTE | 2020-04-17 19:05 | NUR ---
bedside shift report given to PM nurse. pt awake, alert, oriented X3, no s/s of distress. no complaints at this time. IV patent, intact. pt in stable condition.
--- NOTE | 2020-04-17 19:15 | NUR ---
Received the pt in report.lyeing in the bed.stable condition.no pain voiced.aaox3.no resp.distress.call light within reach.instructed to call for assistance as needed.
--- NOTE | 2020-04-17 22:15 | NUR ---
infectious disease per his note patient seen and examined chart reviewed events noted lab data reviewed The patient is a little bit confused today. Keeps asking same questions over and over. OBJECTIVE: VITAL SIGNS: Blood pressure 123/70, temperature 37.9, heart rate 87 per minute, respiratory rate is 18 per minute, oxygen saturation 93%. ABDOMEN: Soft. EXTREMITIES: Show no evidence of edema. NEUROLOGIC: No motor deficits. LABORATORY DATA: On the blood work; we have CBC; white blood count 6.56, hemoglobin 10.6, hematocrit 33.7, and platelet count 230,000, blood sugar 97. AST 10, ALT 10. We are waiting for the final report on the hepatitis profile, antinuclear antibody, ceruloplasmin level, antimitochondrial antibodies. FINAL IMPRESSION: 1. Atypical abdominal pain, which has resolved. 2. cirrhosis of the liver. 3. History of coronary artery disease. Stable subfascial did point of view could be discharged home off antibiotic
[2020-04-18] VITALS: BP 113/65
[2020-04-18] MEDS: PIPER-TAZ 3.375 GM 50 ML IV SCH ×3 (00:11→13:13)
--- NOTE | 2020-04-18 00:11 | NUR ---
is in the unit to see the pt.recommended for paracentesis.but pt refused the procedure
[2020-04-18 04:00] VITALS: BP 111/65
--- NOTE | 2020-04-18 07:22 | NUR ---
BED SIDE SHIFT REPORT GIVEN TO ONCOMING RN.STABLE CONDITION.
[2020-04-18] MEDS: INSULIN LISPRO 100 UNIT/1 ML 3ML VIAL SQ SCH ×2 (07:30→11:30)
--- NOTE | 2020-04-18 07:36 | NUR ---
ASSUMED CARE. RESTING IN BED. NO DISTRESS NOTED. CALL LIGHT IN REACH. SIDE RAILS UP X2. BED LOW AND LOCKED.
[2020-04-18 08:06] VITALS: BP 112/72
[2020-04-18 08:24] LABS: % IRON SATURATION 12 % (15-50); IRON 33 ug/dL (65-175); TOTAL IRON BINDING CAPACITY 274 ug/dL (261-478); TRANSFERRIN 196 mg/dL (174-364)
[2020-04-18 09:01] VITALS: BP 112/72
[2020-04-18 11:28] VITALS: BP 121/70
[2020-04-18] MEDS ORDERED: FUROSEMIDE INJ 10 MG/ML 4 ML VIAL IV ONE (11:30)
[2020-04-18] MEDS ORDERED: ALDACTONE25 MG PO (13:23)
--- NOTE | 2020-04-18 16:53 | Progress Note ---
DATE: 04/18/2020 SUBJECTIVE: Mr. Good is doing well. There is no new complaint. Lab data reviewed. Chart reviewed. PHYSICAL EXAMINATION: GENERAL: He is currently alert, oriented. VITAL SIGNS: Stable, currently afebrile. HEENT: . NECK: Supple. CHEST: Clear. HEART: S1, S2. ABDOMEN: Soft. IMPRESSION AND PLAN: Abdominal pain seems to be better. No antibiotic. The patient will be discharged. Follow up as outpatient. MD MORELIA Villasenor/LAKHWINDER /[id number]
[2020-04-18] MEDS ORDERED: SPIRONOLACTONE 25 MG TAB PO SCH (17:00)
[2020-04-18] MEDS ORDERED: INSULIN GLARGINE 100 UNITS/ML VIAL SQ SCH (21:00)
[2020-04-18] MEDS ORDERED: INSULIN DETEMIR 45 UNIT SC SCH (21:00)
[2020-04-18] MEDS ORDERED: ATORVASTATIN 40 MG TAB PO SCH (21:00)
[2020-04-19] MEDS ORDERED: LISINOPRIL 20 MG TAB PO SCH (09:00)
[2020-04-19] MEDS ORDERED: NON-FORMULARY MEDICATION (Atorvastatin Calcium (Lipitor) 40 MG) PO SCH (09:00)
[2020-04-19] MEDS ORDERED: CLOPIDOGREL BISULFATE 75 MG TAB PO SCH (09:00)
[2020-04-19] MEDS ORDERED: INSULIN GLARGINE 100 UNITS/ML VIAL SQ SCH (09:00)
[2020-04-19] MEDS ORDERED: FUROSEMIDE 40 MG TAB PO SCH (09:00)
[2020-04-19] MEDS ORDERED: LISINOPRIL 10 MG TAB PO SCH (09:00)
[2020-04-19] MEDS ORDERED: INSULIN DETEMIR SQ SCH (09:00)
== END 2020-04-18 15:30 | disposition home or self-care (01) | DRG 432 ==
LOC: ER 12:00 → ERHOLD 14:48 → MED/SURG2 17:28
DX: K74.60 Unspecified cirrhosis of liver (principal); G93.41 Metabolic encephalopathy; R18.8 Other ascites; I50.42 Chronic combined systolic (congestive) and diastolic (congestive) heart failure; E80.6 Other disorders of bilirubin metabolism; Z95.1 Presence of aortocoronary bypass graft; F17.210 Nicotine dependence, cigarettes, uncomplicated; I25.10 Atherosclerotic heart disease of native coronary artery without angina pectoris; E11.9 Type 2 diabetes mellitus without complications; Z11.59 Encounter for screening for other viral diseases; F10.21 Alcohol dependence, in remission; Z79.4 Long term (current) use of insulin
CPT/HCPCS: 36415; 74177; 76705; 80053; 80076; 81001; 82390; 82550; 82553; 82607; 82728; 82746; 82948; 83540; 83605; 83690; 84466; 84484; 85025; 85045; 86039; 87040; 93005; 99284; J1940; J2270; J2405; J2543; J7030; J7050; Q9967; U0002